=== PATIENT | female | born 1940 | race Caucasian/White ===

== ENCOUNTER → 2018-02-21 | Outpatient (REF) | payer MEDICARE, SELFPAY | LOC: LAB 17:51 | PROVIDERS: Family Provider Physician Assistant; PCP Physician Assistant; Visit Provider Physician Assistant | DX: C44.729 Squamous cell carcinoma of skin of left lower limb, including hip (principal) | CPT/HCPCS: 87070; 87075; 87205 ==

== ENCOUNTER 2020-05-05 13:34 | Inpatient (IN) | payer MEDICARE, SELFPAY ==
[2020-05-05] VITALS (26 sets, daily range): BP systolic 79–205; BP diastolic 51–97; PULSE 90–116; RESP 19–37; TEMP 37.1–37.2; O2SAT 90–98; BMI 21.2
--- NOTE | 2020-05-05 13:44 | DI.RAD.S_ITS ---
PROCEDURE: XR CHEST 1V INDICATIONS: SOB, fatigue TECHNIQUE: One view of the chest was acquired. COMPARISON: [facility], , CHEST 1 VIEW, 04/19/2016, 10:12. FINDINGS: Surgical changes and devices: None. Lungs and pleura: Interstitial prominence and Sveta B-lines noted compatible with CHF. Trace right pleural effusion. No pneumothorax. Mediastinum: Mediastinal contours appear normal. Heart is enlarged. Mitral annulus calcifications noted. Bones and chest wall: No suspicious bony lesions. Overlying soft tissues appear unremarkable. IMPRESSION: CHF. Dictated by: Namita Mcgraw MD, PhD on 05/05/2020 at 15:39 Approved by: Namita Mcgraw MD, PhD on 05/05/2020 at 15:42
[2020-05-05] MEDS: FUROSEMIDE 40 MG/4 ML VIAL IV (13:53)
--- NOTE | 2020-05-05 13:55 | PC.NURSE ---
informed due to airborne precautions we would not be able to allow visitors. If the patient's COVID is negative we can get him in then. If the patient is positive, visitors will be restricted.
[2020-05-05] MEDS: NITROGLYCERIN 50 MG/250 ML INFUS..BTL 30 MG IV (13:56)
[2020-05-05 14:20] LABS: Add Manual Diff / Slide Review NO; Basophils Absolute Auto 100 /uL (0-100); Basophils Percent Auto 0.8 % (0-2); Eosinophils Absolute Auto 100 /uL (0-450); Eosinophils Percent Auto 0.9 % (2-4); Hematocrit 43.1 % (36-46); Lymphocytes Absolute Auto 1700 /uL (1100-4500); Mean Corpuscular HGB Conc 32.5 % (30-36); Mean Corpuscular Hemoglobin 32.8 PG (26-34); Mean Corpuscular Volume 100.9 fL (80-100); Monocytes Absolute Auto 500 /uL (0-900); Monocytes Percent Auto 6.5 % (3-14); Neutrophils Absolute Auto 6000 /uL (1500-7000); Neutrophils Percent Auto 71.8 % (50-75); Platelet Count 214 X10^3/uL (150-400); Red Blood Cell Count 4.27 X10^6/uL (4.0-5.2); White Blood Cell Count 8.3 X10^3/uL (4.5-11.0)
[2020-05-05 14:28] LABS: HCO3 ABG 15 mmol/L (22-26); Oxygen Saturation ABG 94 % (95-100); PCO2 ABG 29.1 mmHg (35-45); PO2 ABG 75 mmHg (80-100); TCO2 ABG 16 mmol/L (21-31); pH ABG 7.33 (7.35-7.45)
[2020-05-05 14:29] LABS: PTT Partial Thromboplastin Tim 49 SECONDS (26.4-36.2)
--- NOTE | 2020-05-05 14:32 | RT ---
HFNC in ER started, Dr Winston stated he wants a trial of HFNC before trying Bipap (pt severely dyspnic) ABG obtained with some difficulty, but results sent to Dr Winston. No HFNC changes
[2020-05-05 14:33] LABS: Creatine Kinase 115 U/L (30-135); Magnesium 1.8 mg/dL (1.6-2.3)
[2020-05-05 14:35] LABS: Alanine Aminotransferase 25 IU/L (<35); Albumin 4.7 g/dL (3.5-5.0); Albumin Globulin Ratio 1.3 (1.0-2.8); Alkaline Phosphatase 103 U/L (38-126); Aspartate Aminotransferase 40 IU/L (14-36); BUN Creatinine Ratio 18.5 (6-22); Bilirubin Total 1.1 mg/dL (0.2-1.3); Blood Urea Nitrogen 20 mg/dL (7-17); Calcium 9.6 mg/dL (8.4-10.2); Carbon Dioxide 14 mmol/L (22-32); Chloride 105 mmol/L (98-107); Estimated Glomerular Filt Rate 48.9 mL/min (>60); Globulin 3.5 g/dL (1.7-4.1); Glucose 196 mg/dL (80-110); HEMOLYSIS < 15 (0-50); Potassium 4.4 mmol/L (3.4-5.1); Prothrombin Time 52.6 SECONDS (10.1-12.7); Sodium 136 mmol/L (137-145); Total Protein 8.2 g/dL (6.3-8.2)
[2020-05-05 14:36] LABS: INR 4.6 (0.9-1.3)
[2020-05-05 14:42] LABS: C-Reactive Protein Quant < 0.5 mg/dL (<1.0)
[2020-05-05 14:44] LABS: NT-proBNP (BNP-Adult 18+) 4610 pg/mL (<450); Troponin I 0.015 ng/mL (0.01-0.034)
--- NOTE | 2020-05-05 14:46 | PC.NURSE ---
ems reported pt HR irreg at 140bpm, provided 20mg cardizem iv.
[2020-05-05 14:53] LABS: CKMB % Relative Index 1.3 % (1.5-5.0); Creatine Kinase MB 1.44 ng/mL (<2.37)
[2020-05-05 14:58] LABS: Procalcitonin < 0.05 ng/mL (<0.5)
--- NOTE | 2020-05-05 15:05 | ED.SOB ---
HPI - SOB/Dyspnea General Chief Complaint: Shortness of Breath/Dyspnea Stated Complaint: Severe resp distress,AFIB Time Seen by Provider: 05/05/20 13:37 Source: patient and EMS Mode of arrival: EMS Limitations: no limitations History of Present Illness HPI Narrative: 80F former smoker with history of CHF and prior vascular occlusion presents by EMS for severe, rather sudden onset shortness of breath. She is a rather poor historian and is unclear if she has ever had AFib before but does state that she takes blood thinners. EMS found her and a rapid atrial fibrillation with significant respiratory distress, IV and oxygen or given and Cardizem 20 mg IV push was given. By her arrival her heart rate had improved tremendously, she was taken into a negative flow room and aggressive treatment provided. She denies any recent medication or dietary change. She denies any chest pain. She denies any weight gain. She denies missing any medications. She denies any fever or chills. She denies nausea, vomiting or diarrhea. Related Data Home Medications Medication Instructions Recorded Confirmed Alendronate Sodium (FOSAMAX) 10 mg PO 30 #0 01/05/12 Allergies Allergy/AdvReac Type Severity Reaction Status Date / Time No Known Drug Allergies Allergy Verified 05/05/20 14:50 Review of Systems Constitutional Constitutional: Denies chills, Denies fatigue, Denies fever(s), Denies frequent falls, Denies lethargy and Denies weakness Eyes Eyes: Denies change in vision, Denies eye discharge, Denies irritation and Denies loss of vision ENT Ears, Nose, Mouth, and Throat: Denies change in voice, Denies dizziness, Denies neck pain, Denies sore throat and Denies throat swelling Cardiovascular Cardiovascular: Denies chest pain, Denies irregular heart rhythm, Reports lightheadedness, Denies palpitations, Reports dyspnea, Reports dyspnea on exertion and Denies orthopnea Respiratory Respiratory: Denies cough, Reports dyspnea, Reports dyspnea on exertion and Denies wheezing Gastrointestinal Gastrointestinal: Denies abdominal pain, Denies change in bowel habits, Denies diarrhea, Denies nausea and Denies vomiting Musculoskeletal Musculoskeletal: Denies neck pain and Denies numbness Integumentary/Breasts Skin/Breast: Denies pruritus, Denies erythema, Denies rash and Denies wounds Neurologic Neurologic: Denies behavioral changes, Denies confusion, Denies dizziness, Denies frequent falls, Denies loss of vision, Denies numbness and Denies weakness Psychiatric Psychiatric: Denies anxiety, Denies behavioral changes, Denies confusion, Denies depression, Denies homicidal ideation and Denies suicidal ideation Endocrine Endocrine: Denies fatigue, Denies flushing and Denies palpitations Hematologic/Lymphatic Hematologic/Lymphatic: Denies easy bruising Allergic/Immunologic Allergic/Immunologic: Denies urticaria, Denies throat swelling and Denies wheezing Patient History Social History household members: spouse Smoking Status: Former smoker Smoking Status: Current every day smoker alcohol intake frequency: 0-2 drinks per day Substance Use Type: does not use Exam Narrative Exam Narrative: GENERAL: [80] year old patient appears stated age. Well-nourished, well-developed patient, in significant respiratory distress with tachypnea, 2-3 word sentences HEAD: Atraumatic. Normocephalic. EYES: Pupils equal round and reactive. Extraocular motions intact. No scleral icterus. No injection or drainage. ENT: Nose without bleeding, purulent drainage. Throat without erythema, tonsillar hypertrophy or exudate. Airway patent. NECK: Trachea midline. Non tender CARDIOVASCULAR: Tachycardic and irregular rhythm without murmurs, gallops, or rubs. RESPIRATORY: significant work of breathing, wet sounding in all islas GASTROINTESTINAL: Abdomen soft, non-tender, nondistended. EXTREMITIES: No edema or joint tenderness. BACK: Nontender without deformity or crepitance. No flank tenderness. NEURO: AOx3. SKIN: No rash or erythema of visible areas Initial Vital Signs Initial Vital Signs: Vital Signs Pulse Rate 100 H 05/05/20 13:30 Respiratory Rate 34 H 05/05/20 13:30 Blood Pressure 205/97 H 05/05/20 13:30 Pulse Oximetry 92 05/05/20 13:30 Course Course Course Narrative: patient taken to negative flow room and placed on hi flow nasal cannula, with nitro drip. She rapidly improves and when appropriate NG drip turned down and then off, transitioned to oral meds. Orders Ordered: ED Orders 05/05/20 13:44 XR chest 1V Stat 05/05/20 13:50 C-Reactive Protein Quant Stat Complete Blood Count AUTO DIFF Stat Comprehensive Metabolic Panel Stat Ferritin Stat Lactate (Lactic Acid) Stat Magnesium Stat NT-proBNP (BNP-Adult 18+) Stat Partial Thromboplastin Time Stat Procalcitonin Stat Prothrombin Time INR Stat Troponin & CK Cardiac Panel Stat 05/05/20 14:15 Arterial Blood Gas Stat 05/05/20 14:48 Blood Culture Stat Nitroglycerin (Nitroglycerin) 50 mg in 250 mls @ 30 mls/hr IV TITRATE SUE; Protocol Last Titration: 05/05/20 17:32 Dose: 0 mcg/min, 0 mls/hr Documented by: Titration: 05/05/20 16:39 Dose: 0 mcg/min, 0 mls/hr Documented by: Admin: 05/05/20 13:56 Dose: 100 mcg/min, 30 mls/hr Documented by: VILMA Discontinued Medications Carvedilol (Coreg) 12.5 mg PO NOW ONE Stop: 05/05/20 15:11 Last Admin: 05/05/20 15:36 Dose: 12.5 mg Documented by: VILMA Furosemide (Lasix) 40 mg IV NOW ONE Stop: 05/05/20 13:44 Last Admin: 05/05/20 13:53 Dose: 40 mg Documented by: VILMA Ceftriaxone Sodium/Dextrose (Rocephin) 1 gm in 50 mls @ 100 mls/hr IV NOW ONE Stop: 05/05/20 15:21 Last Infusion: 05/05/20 15:38 Dose: 50 mls/hr Documented by: Admin: 05/05/20 15:07 Dose: 100 mls/hr Documented by: VILMA Azithromycin 500 mg/ Dextrose 250 mls @ 250 mls/hr IV NOW ONE Stop: 05/05/20 14:53 Last Infusion: 05/05/20 17:52 Dose: 0 mls/hr Documented by: Admin: 05/05/20 15:36 Dose: 250 mls/hr Documented by: VILMA Vital Signs Vital signs: Vital Signs - 8 hr 05/05/20 13:30 05/05/20 13:56 05/05/20 14:10 Pulse Rate 100 H 103 H Respiratory Rate 34 H Blood Pressure 205/97 H 205/97 H Pulse Oximetry 92 92 05/05/20 14:14 05/05/20 14:20 05/05/20 14:26 Pulse Rate 102 H 100 H 104 H Respiratory Rate 37 H 32 H 32 H Blood Pressure 138/90 Pulse Oximetry 90 L 91 92 05/05/20 14:30 05/05/20 14:40 05/05/20 14:50 Pulse Rate 99 H 94 H 108 H Respiratory Rate 27 H 24 28 H Blood Pressure 146/71 H 144/58 H 135/60 Pulse Oximetry 92 93 94 05/05/20 15:00 05/05/20 15:10 05/05/20 15:20 Pulse Rate 106 H 111 H 98 H Respiratory Rate 25 H 27 H 19 Blood Pressure 121/51 L 108/63 107/72 Pulse Oximetry 94 96 97 05/05/20 15:30 05/05/20 15:36 05/05/20 15:40 Pulse Rate 106 H 98 H 104 H Respiratory Rate 21 26 H Blood Pressure 118/86 118/86 130/78 Pulse Oximetry 97 97 05/05/20 15:50 05/05/20 16:00 05/05/20 16:10 Pulse Rate 116 H 104 H 90 Respiratory Rate 25 H 25 H 21 Blood Pressure 132/59 L 105/55 L 96/51 L Pulse Oximetry 97 96 97 05/05/20 16:20 05/05/20 16:30 Pulse Rate 103 H 104 H Respiratory Rate 21 20 Blood Pressure 96/51 L 85/51 L Pulse Oximetry 95 97 MDM - SOB/Dyspnea Lab Data Result diagrams: 05/05/20 13:50 05/05/20 13:50 Labs: Lab Results 05/05/20 05/05/20 05/05/20 Range/Units 13:50 13:50 13:50 WBC 8.3 (4.5-11.0) X10^3/uL RBC 4.27 (4.0-5.2) X10^6/uL Hgb 14.0 (12.0-16.0) g/dL Hct 43.1 (36-46) % MCV 100.9 H (80-100) fL MCH 32.8 (26-34) PG MCHC 32.5 (30-36) % RDW 16.0 H (11.6-14.8) % Plt Count 214 (150-400) X10^3/uL Neut % (Auto) 71.8 (50-75) % Lymph % (Auto) 20.0 L (25-40) % [place] % (Auto) 6.5 (3-14) % Eos % (Auto) 0.9 L (2-4) % Baso % (Auto) 0.8 (0-2) % Neut # (Auto) 6000 (2487-1704) /uL Lymph # (Auto) 1700 (3596-5012) /uL [place] # (Auto) 500 (0-900) /uL Eos # (Auto) 100 (0-450) /uL Baso # (Auto) 100 (0-100) /uL PT (10.1-12.7) SECONDS INR (0.9-1.3) APTT (26.4-36.2) SECONDS ABG pH (7.35-7.45) ABG pCO2 (35-45) mmHg ABG pO2 (80-100) mmHg ABG HCO3 (22-26) mmol/L ABG Total CO2 (21-31) mmol/L ABG O2 Saturation (95-100) % ABG Base Excess (-2-2) mmol/L FiO2 Sodium 136 L (137-145) mmol/L Potassium 4.4 (3.4-5.1) mmol/L Chloride 105 (98-107) mmol/L Carbon Dioxide 14 L (22-32) mmol/L BUN 20 H (7-17) mg/dL Creatinine 1.08 H (0.52-1.04) mg/dL Estimated GFR 48.9 L (>60) mL/min BUN/Creatinine Ratio 18.5 (6-22) Glucose 196 H (80-110) mg/dL Lactate 6.0 H* (0.7-2.1) mmol/L Calcium 9.6 (8.4-10.2) mg/dL Magnesium (1.6-2.3) mg/dL Ferritin 108 (11-264) ng/mL Total Bilirubin 1.1 (0.2-1.3) mg/dL AST 40 H (14-36) IU/L ALT 25 (<35) IU/L Alkaline Phosphatase 103 (38-126) U/L Total Creatine Kinase (30-135) U/L CK-MB (CK-2) (<2.37) ng/mL CK-MB (CK-2) Rel Index (1.5-5.0) % Troponin I (0.01-0.034) ng/mL C-Reactive Protein < 0.5 (<1.0) mg/dL NT-Pro-B Natriuret Pep (<450) pg/mL Total Protein 8.2 (6.3-8.2) g/dL Albumin 4.7 (3.5-5.0) g/dL Globulin 3.5 (1.7-4.1) g/dL Albumin/Globulin Ratio 1.3 (1.0-2.8) Procalcitonin (<0.5) ng/mL COVID-19 PCR (Negative) 05/05/20 05/05/20 05/05/20 Range/Units 13:50 13:50 13:50 WBC (4.5-11.0) X10^3/uL RBC (4.0-5.2) X10^6/uL Hgb (12.0-16.0) g/dL Hct (36-46) % MCV (80-100) fL MCH (26-34) PG MCHC (30-36) % RDW (11.6-14.8) % Plt Count (150-400) X10^3/uL Neut % (Auto) (50-75) % Lymph % (Auto) (25-40) % [place] % (Auto) (3-14) % Eos % (Auto) (2-4) % Baso % (Auto) (0-2) % Neut # (Auto) (4935-7769) /uL Lymph # (Auto) (7965-8985) /uL [place] # (Auto) (0-900) /uL Eos # (Auto) (0-450) /uL Baso # (Auto) (0-100) /uL PT 52.6 H (10.1-12.7) SECONDS INR 4.6 H* (0.9-1.3) APTT 49 H (26.4-36.2) SECONDS ABG pH (7.35-7.45) ABG pCO2 (35-45) mmHg ABG pO2 (80-100) mmHg ABG HCO3 (22-26) mmol/L ABG Total CO2 (21-31) mmol/L ABG O2 Saturation (95-100) % ABG Base Excess (-2-2) mmol/L FiO2 Sodium (137-145) mmol/L Potassium (3.4-5.1) mmol/L Chloride (98-107) mmol/L Carbon Dioxide (22-32) mmol/L BUN (7-17) mg/dL Creatinine (0.52-1.04) mg/dL Estimated GFR (>60) mL/min BUN/Creatinine Ratio (6-22) Glucose (80-110) mg/dL Lactate (0.7-2.1) mmol/L Calcium (8.4-10.2) mg/dL Magnesium 1.8 (1.6-2.3) mg/dL Ferritin (11-264) ng/mL Total Bilirubin (0.2-1.3) mg/dL AST (14-36) IU/L ALT (<35) IU/L Alkaline Phosphatase (38-126) U/L Total Creatine Kinase 115 (30-135) U/L CK-MB (CK-2) 1.44 (<2.37) ng/mL CK-MB (CK-2) Rel Index 1.3 L (1.5-5.0) % Troponin I 0.015 (0.01-0.034) ng/mL C-Reactive Protein (<1.0) mg/dL NT-Pro-B Natriuret Pep 4610 H (<450) pg/mL Total Protein (6.3-8.2) g/dL Albumin (3.5-5.0) g/dL Globulin (1.7-4.1) g/dL Albumin/Globulin Ratio (1.0-2.8) Procalcitonin < 0.05 (<0.5) ng/mL COVID-19 PCR (Negative) 05/05/20 05/05/20 05/05/20 Range/Units 14:10 14:15 16:20 WBC (4.5-11.0) X10^3/uL RBC (4.0-5.2) X10^6/uL Hgb (12.0-16.0) g/dL Hct (36-46) % MCV (80-100) fL MCH (26-34) PG MCHC (30-36) % RDW (11.6-14.8) % Plt Count (150-400) X10^3/uL Neut % (Auto) (50-75) % Lymph % (Auto) (25-40) % [place] % (Auto) (3-14) % Eos % (Auto) (2-4) % Baso % (Auto) (0-2) % Neut # (Auto) (2962-2353) /uL Lymph # (Auto) (4352-3038) /uL [place] # (Auto) (0-900) /uL Eos # (Auto) (0-450) /uL Baso # (Auto) (0-100) /uL PT (10.1-12.7) SECONDS INR (0.9-1.3) APTT (26.4-36.2) SECONDS ABG pH 7.33 L (7.35-7.45) ABG pCO2 29.1 L (35-45) mmHg ABG pO2 75 L (80-100) mmHg ABG HCO3 15 L (22-26) mmol/L ABG Total CO2 16 L (21-31) mmol/L ABG O2 Saturation 94 L (95-100) % ABG Base Excess -11.0 L (-2-2) mmol/L FiO2 0.50 Sodium (137-145) mmol/L Potassium (3.4-5.1) mmol/L Chloride (98-107) mmol/L Carbon Dioxide (22-32) mmol/L BUN (7-17) mg/dL Creatinine (0.52-1.04) mg/dL Estimated GFR (>60) mL/min BUN/Creatinine Ratio (6-22) Glucose (80-110) mg/dL Lactate 2.1 (0.7-2.1) mmol/L Calcium (8.4-10.2) mg/dL Magnesium (1.6-2.3) mg/dL Ferritin (11-264) ng/mL Total Bilirubin (0.2-1.3) mg/dL AST (14-36) IU/L ALT (<35) IU/L Alkaline Phosphatase (38-126) U/L Total Creatine Kinase (30-135) U/L CK-MB (CK-2) (<2.37) ng/mL CK-MB (CK-2) Rel Index (1.5-5.0) % Troponin I (0.01-0.034) ng/mL C-Reactive Protein (<1.0) mg/dL NT-Pro-B Natriuret Pep (<450) pg/mL Total Protein (6.3-8.2) g/dL Albumin (3.5-5.0) g/dL Globulin (1.7-4.1) g/dL Albumin/Globulin Ratio (1.0-2.8) Procalcitonin (<0.5) ng/mL COVID-19 PCR Negative (Negative) Imaging Data Chest x-ray: Radiologist's Impression: Mariela North 80 F [address] [address] XRay Report Signed Patient: Mariela North EMR#: [id number] : [id number]:[id number] Age/Sex: 80 / FDate of Service: 05/05/20 Loc: ED Accession Number: [id number] Procedure: XR chest 1V Ordering Provider: Cruz Winston D.O. PROCEDURE: XR CHEST 1V INDICATIONS: SOB, fatigue TECHNIQUE: One view of the chest was acquired. COMPARISON: [facility], CHEST 1 VIEW, 04/19/2016, 10:12. FINDINGS: Surgical changes and devices: None. Lungs and pleura: Interstitial prominence and Sveta B-lines noted compatible with CHF. Trace right pleural effusion. No pneumothorax. Mediastinum: Mediastinal contours appear normal. Heart is enlarged. Mitral annulus calcifications noted. Bones and chest wall: No suspicious bony lesions. Overlying soft tissues appear unremarkable. IMPRESSION: CHF. Dictated by: Namita Mcgraw MD, PhD on 05/05/2020 at 15:39 Approved by: Namita Mcgraw MD, PhD on 05/05/2020 at 15:42 Discharge Plan Departure Patient Disposition: Admitted As Inpatient Clinical Impression: Atrial fibrillation with RVR, Hypoxia Acute CHF Qualifiers: Heart failure type: unspecified Qualified Code(s): I50.9 - Heart failure, unspecified Discharge Date/Time: 05/05/20 17:30 Referrals: Diana Pinzon PA-C [Primary Care Provider] - Admit Date/Time: 05/05/20 16:33 Admit Provider: Bisi Morrison
[2020-05-05 15:07] LABS: Ferritin 108 ng/mL (11-264)
[2020-05-05] MEDS: CEFTRIAXONE 1 GM/50 ML FROZ.PIGGY IV (15:07)
[2020-05-05 15:15] LABS: COVID19 -Nasal RAPID Negative (Negative)
[2020-05-05] MEDS: carvediloL 12.5 MG TABLET PO (15:36)
[2020-05-05] MEDS: AZITHROMYCIN 500 MG in DEXTROSE 5% IN WATER 250 ML IV (15:36)
[2020-05-05 16:12] LABS: Reflexed Lactate in 2 Hours Y
--- NOTE | 2020-05-05 16:40 | PC.NURSE ---
the first dose of azithromycin was started but ended up spilling into the floor. 2nd dose ordered from pharmacy and started at 1650. provider and charge aware and no new orders at this time,.
[2020-05-05 16:43] LABS: Lactate 2HR (Lactic Acid Rflx) 2.1 mmol/L (0.7-2.1)
--- NOTE | 2020-05-05 18:22 | PC.NURSE ---
1725 pt arrived via gurney from ED, A/Ox3, RT at bedside. Pt currently on a non-breather mask and will be transitioned to [place]. Slide board used to place pt on bed, pt immediately place on bed rodriguez, was given 40mg Lasix in ED. Connected pt to monitor and telemetry pt currently in AFib RVR rate in the 140's. ED placed pt on a nitro gtt which has now been discontinued. Pt oriented to room and call light system, able to make needs known, Admission completed, no further needs at this time, will continue to monitor.
[2020-05-05 22:35] LABS: Troponin I 0.085 ng/mL (0.01-0.034)
[2020-05-06] VITALS (11 sets, daily range): BP systolic 106–191; BP diastolic 58–109; PULSE 78–100; RESP 15–22; TEMP 35.9–37.1; O2SAT 96–97
--- NOTE | 2020-05-06 01:54 | P.HP_ITS ---
History of Present Illness History of Present Illness Date Patient Seen: 05/05/20 Time Patient Seen: 21:15 Chief complaint: Severe resp distress,AFIB Narrative: Mariela North is a 80-year-old female with a history of atrial fibrillation, current light tobacco use, peripheral arterial disease, hypertension, hyperlipidemia presented with shortness of breath and shakiness. She states that happened around noon and she was not doing anything at that time. She den ied fever or chills, chest pain, nausea vomiting, abdominal pain, dysuria, has occasional loose stools, and incontinence. 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 She is currently taking warfarin for this and takes the equivalent of 2.5 mg 6 days a week except . In the emergency department they did start with a administration of IV diltiazem 20 mg and then put her on a nitro drip for about 3 hours. Chest x-ray indicated CHF with Sveta B lines. She was initiated on heated high-flow humidified oxygen but by the time she reached the floor she was only on room air. Her temp 96.7?, blood pressure 154/67, heart rate 85, respiratory rate 15 oxygen saturation 97% on room air. WBC 8.3, RBC 4.27, hemoglobin 14 hematocrit 43.1 platelet count 214, INR was 4.6 which is supratherapeutic, sodium 136, potassium 4.4, bicarb 105, CO2 14, BUN 20, creatinine 1.08, estimated GFR 48.9, glucose 196, lactate normal at 2.1, magnesium normal at 1.8, total bili normal at 1.1, AST 40, ALT 25, alk-phos, initial troponin was 0.015 and her 2nd troponin was 0.085, proBNP was 46 10, procalcitonin was normal at 0. 05 and COVID-19 was negative. Patient History Medical History Atrial fibrillation with RVR (Acute) Surgical History Back pain with history of spinal surgery (Acute) Femoral-popliteal bypass graft occlusion (Acute) Family & Social History Family History (Updated 07/10/20 @ 02:07 by JAQUAN Doe) Mother Old age Family history unavailable: Yes (Unknown health problems of the father per patient) Social History: household members spouse Prior Living Arrangements House Safety & Behavioral: Feels Safe in Current Yes Environment Been Physically Hurt or No Threatened By a Person Suicidal Ideation Description None Suicide Plan Description No Plan Tobacco & Substance use: Tobacco type cigarettes Smoking Status Former smoker alcohol intake frequency 0-2 drinks per day Substance Use Type does not use Meds Home Medications and Allergies Home Medications Medication Instructions Recorded Confirmed Type carvedilol 05/05/20 History Allergies Allergy/AdvReac Type Severity Reaction Status Date / Time No Known Drug Allergies Allergy Verified 05/05/20 14:50 Review of Systems Review of Systems ROS: Yes All systems reviewed with the patient and are negative except as otherwise documented Exam Vital Signs (past 8 hours): - 05/05/20 21:50 05/06/20 00:25 Temperature 98.9 F 96.7 F L Pulse Rate 105 H 85 Respiratory Rate 32 H 15 Blood Pressure 159/79 H 154/67 H Pulse Oximetry 97 97 Fraction of Inspired Oxygen 30 Oxygen Delivery Method Room Air Oxygen Flow Rate 0 Narrative Exam Narrative: Gen: Alert, oriented, well-developed 80 y.o. female, slightly confused HEENT: normocephalic, atraumatic, conjunctiva clear, sclera non-icteric, oral mucosa pink and moist Neck: supple, full ROM, no JVD, trachea is midline Resp: Lungs CTA, non-labored breathing CV: RRR, no murmur or rubs Abd: soft, non-tender, normoactive BTs Skin: no lesions or rashes, dry and intact Neuro: Alert and oriented X 4 w/no focal deficits. Speech clear and coherent. Extremities: Has what appears to be a surgical scar on her instep of her right foot. Is ambulatory with a walker, negative Nacho?s sign Psyche: normal mood and affect. Objective Labs Result Diagrams: 05/05/20 13:50 05/05/20 13:50 Labs: Laboratory Results - last 24 hr 05/05/20 05/05/20 05/05/20 13:50 13:50 13:50 WBC 8.3 RBC 4.27 Hgb 14.0 Hct 43.1 MCV 100.9 H MCH 32.8 MCHC 32.5 RDW 16.0 H Plt Count 214 Neut % (Auto) 71.8 Lymph % (Auto) 20.0 L [place] % (Auto) 6.5 Eos % (Auto) 0.9 L Baso % (Auto) 0.8 Neut # (Auto) 6000 Lymph # (Auto) 1700 [place] # (Auto) 500 Eos # (Auto) 100 Baso # (Auto) 100 PT INR APTT ABG pH ABG pCO2 ABG pO2 ABG HCO3 ABG Total CO2 ABG O2 Saturation ABG Base Excess FiO2 Sodium 136 L Potassium 4.4 Chloride 105 Carbon Dioxide 14 L BUN 20 H Creatinine 1.08 H Estimated GFR 48.9 L BUN/Creatinine Ratio 18.5 Glucose 196 H Lactate 6.0 H* Calcium 9.6 Magnesium Ferritin 108 Total Bilirubin 1.1 AST 40 H ALT 25 Alkaline Phosphatase 103 Total Creatine Kinase CK-MB (CK-2) CK-MB (CK-2) Rel Index Troponin I C-Reactive Protein < 0.5 NT-Pro-B Natriuret Pep Total Protein 8.2 Albumin 4.7 Globulin 3.5 Albumin/Globulin Ratio 1.3 Procalcitonin COVID-19 PCR 05/05/20 05/05/20 05/05/20 13:50 13:50 13:50 WBC RBC Hgb Hct MCV MCH MCHC RDW Plt Count Neut % (Auto) Lymph % (Auto) [place] % (Auto) Eos % (Auto) Baso % (Auto) Neut # (Auto) Lymph # (Auto) [place] # (Auto) Eos # (Auto) Baso # (Auto) PT 52.6 H INR 4.6 H* APTT 49 H ABG pH ABG pCO2 ABG pO2 ABG HCO3 ABG Total CO2 ABG O2 Saturation ABG Base Excess FiO2 Sodium Potassium Chloride Carbon Dioxide BUN Creatinine Estimated GFR BUN/Creatinine Ratio Glucose Lactate Calcium Magnesium 1.8 Ferritin Total Bilirubin AST ALT Alkaline Phosphatase Total Creatine Kinase 115 CK-MB (CK-2) 1.44 CK-MB (CK-2) Rel Index 1.3 L Troponin I 0.015 C-Reactive Protein NT-Pro-B Natriuret Pep 4610 H Total Protein Albumin Globulin Albumin/Globulin Ratio Procalcitonin < 0.05 COVID-19 PCR 05/05/20 05/05/20 05/05/20 14:10 14:15 16:20 WBC RBC Hgb Hct MCV MCH MCHC RDW Plt Count Neut % (Auto) Lymph % (Auto) [place] % (Auto) Eos % (Auto) Baso % (Auto) Neut # (Auto) Lymph # (Auto) [place] # (Auto) Eos # (Auto) Baso # (Auto) PT INR APTT ABG pH 7.33 L ABG pCO2 29.1 L ABG pO2 75 L ABG HCO3 15 L ABG Total CO2 16 L ABG O2 Saturation 94 L ABG Base Excess -11.0 L FiO2 0.50 Sodium Potassium Chloride Carbon Dioxide BUN Creatinine Estimated GFR BUN/Creatinine Ratio Glucose Lactate 2.1 Calcium Magnesium Ferritin Total Bilirubin AST ALT Alkaline Phosphatase Total Creatine Kinase CK-MB (CK-2) CK-MB (CK-2) Rel Index Troponin I C-Reactive Protein NT-Pro-B Natriuret Pep Total Protein Albumin Globulin Albumin/Globulin Ratio Procalcitonin COVID-19 PCR Negative 05/05/20 22:05 WBC RBC Hgb Hct MCV MCH MCHC RDW Plt Count Neut % (Auto) Lymph % (Auto) [place] % (Auto) Eos % (Auto) Baso % (Auto) Neut # (Auto) Lymph # (Auto) [place] # (Auto) Eos # (Auto) Baso # (Auto) PT INR APTT ABG pH ABG pCO2 ABG pO2 ABG HCO3 ABG Total CO2 ABG O2 Saturation ABG Base Excess FiO2 Sodium Potassium Chloride Carbon Dioxide BUN Creatinine Estimated GFR BUN/Creatinine Ratio Glucose Lactate Calcium Magnesium Ferritin Total Bilirubin AST ALT Alkaline Phosphatase Total Creatine Kinase CK-MB (CK-2) CK-MB (CK-2) Rel Index Troponin I 0.085 H C-Reactive Protein NT-Pro-B Natriuret Pep Total Protein Albumin Globulin Albumin/Globulin Ratio Procalcitonin COVID-19 PCR Assessment & Plan Assessment & Plan narrative: Mariela North is a 80-year-old female with new onset CHF exacerbation. She will be admitted to the ICU for further management and treatment. New onset CHF, acute, present on admission with a proBNP of 4610 -she received Lasix 40 mg x 1 in the ED -she was initiated on a nitro drip in the ED but was discontinued prior to coming to the floor. -I have ordered an echocardiogram for the morning -tropes are being trended and the 2nd troponin is mildly elevated concerning for demand ischemia -1500 cc fluid restriction and a low-sodium diet -daily weights and strict I&Os BRIAN with a creatinine of 1.08, acute, present on admission -her baseline creatinine has been in the normal range until today. -recheck in the morning Atrial fibrillation anticoagulated on warfarin, supratherapeutic, present on admission -Cardiac telemetry w/continous oxygen saturation monitoring -her warfarin will be held tonight. Her normal dose is 2.5 mg daily with the exception of . -the patient received carvedilol 12.5 mg in the ED and her home dose of 12.5 mg p.o. b.i.d. will be continued -she also takes diltiazem 120 mg extended release p.o. daily and this will be continued tomorrow Consults: none, however, she will need to be referred to a water resources project manager for further followup Patient is inpatient status as her stay is likely to exceed 2 midnights. FEN: Saline lock, Low sodium diet with 1500 cc fluid restriction, BMP in the am. VTE prophylaxis: Bilateral SCDs Dispo: Unknown at this time Code Status: Full Code as discussed with patient COVID-19 COVID-19 status: Negative Result date/Date tested (Pos, Neg/Pending): 05/05/20
[2020-05-06 05:08] LABS: Add Manual Diff / Slide Review NO; Basophils Absolute Auto 100 /uL (0-100); Basophils Percent Auto 1.1 % (0-2); Eosinophils Absolute Auto 0 /uL (0-450); Eosinophils Percent Auto 0.8 % (2-4); Hematocrit 34.2 % (36-46); Hemoglobin 11.4 g/dL (12.0-16.0); Lymphocytes Absolute Auto 1000 /uL (1100-4500); Lymphocytes Percent Auto 16.6 % (25-40); Mean Corpuscular HGB Conc 33.3 % (30-36); Mean Corpuscular Hemoglobin 32.9 PG (26-34); Mean Corpuscular Volume 98.6 fL (80-100); Monocytes Absolute Auto 600 /uL (0-900); Monocytes Percent Auto 9.8 % (3-14); Neutrophils Absolute Auto 4300 /uL (1500-7000); Neutrophils Percent Auto 71.7 % (50-75); Platelet Count 170 X10^3/uL (150-400); Red Blood Cell Count 3.47 X10^6/uL (4.0-5.2); Red Cell Distribution Width 15.9 % (11.6-14.8)
[2020-05-06 05:16] LABS: BUN Creatinine Ratio 23.2 (6-22); Blood Urea Nitrogen 22 mg/dL (7-17); Calcium 8.7 mg/dL (8.4-10.2); Carbon Dioxide 22 mmol/L (22-32); Chloride 106 mmol/L (98-107); Estimated Glomerular Filt Rate 56.7 mL/min (>60); Glucose 99 mg/dL (80-110); HEMOLYSIS 26 (0-50); Magnesium 1.7 mg/dL (1.6-2.3); Potassium 3.8 mmol/L (3.4-5.1); Sodium 135 mmol/L (137-145)
[2020-05-06] MEDS: carvediloL 12.5 MG TABLET PO ×2 (05:52→18:53)
[2020-05-06] MEDS: dilTIAZem CD 120 MG CAP PO (05:52)
--- NOTE | 2020-05-06 06:25 | PC.NURSE ---
PT alert and oriented. This AM at 0500 pt reports I feel so anxious and I feel like I have palpitations in my heart. HR in the 120s and BP at 191/92. Notified Neal PARTIDA of VS and pt symptoms. Morning meds ordered to give now. Meds given. Talked with patient of plan for today. Pt now resting in bed with HR 92. WCTM
--- NOTE | 2020-05-06 08:48 | DI.ECHO.S_ITS ---
Echocardiogram Report + + :Name: JASMYN ROSSI Study Date: 05/06/2020 Height: 63 in : :[facility] Weight: 120 lb : : Gender: Female BSA: 1.6 m2 : :: 1940 Age: 80 yrs BP: 106/67 mmHg: :Reason For Study: CHF, : : Performed By: Donta Stone : :Referring: HIRAL MESA : + + Interpretation Summary The left ventricle is normal in size. Left ventricular systolic function is mild to moderately reduced. The ejection fraction is estimated to be 40-45%. Left ventricular function has moderately worsened compared to the previous exam. There is a significant dyssynchronous contraction pattern, consistent with a conduction abnormality. There is mild to moderate global hypokinesis of the left ventricle. Diastolic function could not be accurately assessed due to atrial fibrillation. The right ventricle is normal in size and function. The right ventricular systolic pressure is estimated to be at least 48 mmHg based on an estimated right atrial pressure of 15 mm Hg. Compared to the prior echo exam, there has been a decrease in the severity of pulmonary hypertension. Both atria are severely dilated. There is moderate to severe mitral regurgitation. Compared to the prior echo study, there has been an increase in the severity of mitral regurgitation. There is mild to moderate aortic stenosis. The peak aortic velocity is 1.79 m/sec. The calculated aortic valve area is 1.4 cm2. There is severe tricuspid regurgitation. The ascending aorta is at the upper limits of normal in size. Procedure: A two-dimensional transthoracic echocardiogram with color flow and Doppler was performed. The study quality was technically adequate. Comparison is made with the echocardiogram of 04/19/16. The suprasternal notch views were difficult to obtain and are suboptimal in quality. The patient was in atrial fibrillation with controlled ventricular rate during the exam. The patient had a heart rate of 66-95 beats per minute. Left Ventricle: The left ventricle is normal in size. There is normal left ventricular wall thickness. Left ventricular systolic function is mild to moderately reduced. The ejection fraction is estimated to be 40-45%. Left ventricular function has moderately worsened compared to the previous exam. There is a significant dyssynchronous contraction pattern, consistent with a conduction abnormality. There is mild to moderate global hypokinesis of the left ventricle. Diastolic function could not be accurately assessed due to atrial fibrillation. Right Ventricle: The right ventricle is normal in size and function. Atria: Both atria are severely dilated. The interatrial septum is intact with no evidence for an atrial septal defect. Mitral Valve: There is moderate to severe mitral annular calcification. The mitral valve leaflets are mildly calcified. There is moderate to severe mitral regurgitation. Compared to the prior echo study, there has been an increase in the severity of mitral regurgitation. Aortic Valve: The aortic valve is trileaflet. The aortic valve is moderately calcified. There is moderate to severely reduced leaflet mobility. There is mild to moderate aortic stenosis. The peak aortic velocity is 1.79 m/sec. The calculated aortic valve area is 1.4 cm2. There is no aortic regurgitation. Tricuspid Valve: The tricuspid valve leaflets are thin and pliable. There is severe tricuspid regurgitation. The right ventricular systolic pressure is estimated to be at least 48 mmHg based on an estimated right atrial pressure of 15 mm Hg. Compared to the prior echo exam, there has been a decrease in the severity of pulmonary hypertension. Pulmonic Valve: The pulmonic valve is normal in structure and function. There is trace pulmonic regurgitation. Great Vessels: The aortic root is normal size. The ascending aorta is at the upper limits of normal in size. Mild atherosclerotic plaque(s) in the ascending aorta. The pulmonary artery is normal size. The IVC is dilated (diameter is greater than 2.1 cm) and it collapses less than 50% with a sniff. This suggests a high right atrial pressure of 15 mm Hg. Pericardium/ Pleura There is no pericardial effusion. There is no pleural effusion. MMode/2D Measurements & Calculations LVIDd: 5.2 cm LVOT diam: 2.0 cm LVIDs: 4.0 cm Ao root diam: 2.9 cm FS: 22.1 % asc Aorta Diam: 3.5 cm EPSS: 1.6 cm IVSd: 1.0 cm LVPWd: 0.80 cm LV sanches. diameter/BSA (cm/m^2): 3.3 LV sys. diameter/BSA (cm/m^2): 2.6 LA dimension: 4.9 cm RA long axis: 5.7 cm LA A2 area: 30.9 cm2 RA area: 24.9 cm2 LA A4 area: 32.4 cm2 RA vol: 92.4 ml LA length (vol): 7.0 cm RA : 59.4 ml/m2 LA vol: 120.6 ml IVC diam: 2.3 cm LA vol index: 77.5 ml/m2 RVD1 (basal): 3.8 cm RVD2 (mid): 3.4 cm ROBIN (plan): 0.99 cm2 Doppler Measurements & Calculations Ao V2 max: 179.9 cm/sec LVOT Max Isael: 81.0 cm/sec Ao V2 mean: 141.8 cm/sec LV V1 max P.6 mmHg Ao max P.0 mmHg LV V1 VTI: 16.1 cm Ao mean P.5 mmHg ROBIN(I,D): 1.5 cm2 Ao V2 VTI: 33.2 cm ROBIN(V,D): 1.4 cm2 sev ratio: 0.49 ROBIN indexed to BSA (cm^2/m^2): 0.95 MV E max isael: 126.0 cm/sec TR max isael: 288.4 cm/sec MV A max isael: 1.9 cm/sec TR max P.3 mmHg MV E/A: 65.0 PA V2 max: 58.2 cm/sec Med Peak E' Isael: 3.4 cm/sec PA V2 mean: 42.0 cm/sec E/E' med: 36.6 PA mean P.79 mmHg Lat Peak E' Isael: 6.7 cm/sec PA pr(Accel): 56.7 mmHg E/E' lat: 18.7 E/e' average: 27.7 MV dec time: 0.21 sec MR PISA: 2.7 cm2 SV(LVOT): 48.9 ml MR flow rate: 100.2 cm3/sec MR PISA radius: 0.66 cm Reading Physician:05:49 PM
[2020-05-06] MEDS: LOPERAMIDE 2 MG CAPSULE PO (09:29)
--- NOTE | 2020-05-06 12:05 | PC.NURSE ---
Am shift Pt is A/o x4, denies chest pain or pressure. VSS stable since receiving AM meds early. Pt does appear to have some anxiety r/t pending testing and this does correlate with her increase in HR BP. Will notify Dr Putnam of findings. Echo completed. Results pending. Pt has chronic foot drop to RLE. AFO brace is at home, limiting mobility in room. will provide brace.
[2020-05-06 12:09] LABS: Troponin I 0.059 ng/mL (0.01-0.034)
[2020-05-06] MEDS: FUROSEMIDE 40 MG/4 ML VIAL IV ×2 (15:55→23:31)
--- NOTE | 2020-05-06 15:59 | CM.DANOTE ---
Discharge Planning/Care Management DCP: assessment: case received, EMR reviewed and met with pt during Team Bedside Rounds. Introduced self and role. Pt is a 80 year old female who admitted yesterday late afternoon to care of hospitalist team. COVID-19 test: negative. Payer: Medicare and [employer]. Admission status: INPT: confirmed by UR BETSY Mitchell. Pt admitted with symptoms of severe respiratory distress and AFIB. Full dx and treatment plan are in process. Dr. Putnam has ordered PT this afternoon. Pt identifies her plan at d/c as HOME!. She is hopeful that this will be soon she says. She had a brief snf stay a few years ago and says she wants it clear that she will not consider this options ever again. P:Agreed to see her again tomorrow as more is know. Anticipate d/c to home setting. Maybe HH? CM Discharge Assessment Start: 05/06/20 15:56 Freq: Status: Active Protocol: Document 05/06/20 15:57 ITV (Rec: 05/06/20 15:59 ITV [id number]) Discharge Planning Assessment Advance Directives? Yes History Provided By Patient,Medical Record Prior Living Arrangements House Household Members spouse Comment Charbel [place] [place] [employer] Already Rented / Owned FWW / Walker,Cane,Other Comment leg brace on R leg: has used for a long time. will bring this in for pt to use in hosptial. Review Status In Process
--- NOTE | 2020-05-06 16:45 | PC.NURSE ---
Report received from offgoing RN, bedside safety check completed. Pt awake and orientedx4, conversant and agreeable to plan to care regarding fluid intake limited to 1500ml per day. PIV x 2 noted in pt left arm. One noted to have been started in ED other one not documented as to time or place. Added to IV site check list. 16fr Abdi cath inserted as ordered, draining clear yellow urine.
--- NOTE | 2020-05-06 16:56 | P.PN_ITS ---
Subjective Subjective Date Patient Seen: 05/06/20 Interval history: Patient is a 80-year-old female admitted to the hospital for acute onset congestive heart failure, paroxysmal atrial fibrillation, and acute kidney failure. The patient received 2 doses of Lasix last evening. She reports increasing shortness of breath today. She has no chest pain. No nausea vomiting. The patient has no other complaints Exam Vital Signs (past 8 hours): - 05/06/20 11:47 05/06/20 11:52 05/06/20 15:30 Temperature 98.1 F 98.7 F Pulse Rate 83 78 97 H Respiratory Rate 22 17 22 Blood Pressure 160/90 H 140/80 Pulse Oximetry 97 96 97 Fraction of Inspired Oxygen 30 Oxygen Delivery Method Room Air Oxygen Flow Rate 0 Narrative Exam Narrative: Pleasant elderly female HEENT: Normocephalic atraumatic, sclerae with mild icterus, oropharynx is clear, neck reveals JVD to the angle of the jaw Lungs: Decreased breath sounds with scattered crackles at the bases bilaterally Cardiac exam irregularly irregular normal S1-S2 Abdomen soft nontender nondistended Extremities: 1+ edema bilateral Objective Labs Result Diagrams: 05/06/20 04:35 05/06/20 04:35 Labs: Laboratory Results - last 24 hr 05/05/20 05/06/20 05/06/20 22:05 02:00 04:35 WBC 6.0 RBC 3.47 L Hgb 11.4 L Hct 34.2 L MCV 98.6 MCH 32.9 MCHC 33.3 RDW 15.9 H Plt Count 170 Neut % (Auto) 71.7 Lymph % (Auto) 16.6 L [place] % (Auto) 9.8 Eos % (Auto) 0.8 L Baso % (Auto) 1.1 Neut # (Auto) 4300 Lymph # (Auto) 1000 L [place] # (Auto) 600 Eos # (Auto) 0 Baso # (Auto) 100 Sodium Potassium Chloride Carbon Dioxide BUN Creatinine Estimated GFR BUN/Creatinine Ratio Glucose Calcium Magnesium Troponin I 0.085 H Nasal Screen MRSA (PCR) Negative for mrsa 05/06/20 05/06/20 04:35 04:35 WBC RBC Hgb Hct MCV MCH MCHC RDW Plt Count Neut % (Auto) Lymph % (Auto) [place] % (Auto) Eos % (Auto) Baso % (Auto) Neut # (Auto) Lymph # (Auto) [place] # (Auto) Eos # (Auto) Baso # (Auto) Sodium 135 L Potassium 3.8 Chloride 106 Carbon Dioxide 22 BUN 22 H Creatinine 0.95 Estimated GFR 56.7 L BUN/Creatinine Ratio 23.2 H Glucose 99 Calcium 8.7 Magnesium 1.7 Troponin I 0.059 H Nasal Screen MRSA (PCR) Assessment & Plan Assessment & Plan narrative: 1. 80-year-old female admitted to the hospital for acute decompensated congestive heart failure -patient had a cardiac echo today, results of which are still pending -proBNP elevated at greater than 4700 on admission -will continue Lasix at 40 mg twice daily -will start potassium -will continue Coreg 2. Type 2 myocardial infarction Cardiac enzyme elevated at 0.085, decreased 0.59, patient with no acute chest pain Echo pending to evaluate LV function Will check fasting lipid profile Will start baby aspirin Patient on Coumadin and request to try a NOAC Will continue to monitor troponin Await repeat EKG 3. Paroxysmal atrial fibrillation Continue Coreg Continue diltiazem If rate control continues to be problematic, will discontinue the Coreg and consider metoprolol 4. Acute hypoxic respiratory failure, patient required high-flow oxygen on admission, oxygenation improved with diuresis and this has resolved -will use oxygen as needed -continue IV Lasix 5. Acute kidney injury -will repeat labs in the morning
[2020-05-06] MEDS: SODIUM CHLORIDE 0.9% FLUSH 10 ML IV (22:42)
[2020-05-07] VITALS (23 sets, daily range): BP systolic 115–146; BP diastolic 57–92; PULSE 67–112; RESP 16–40; TEMP 36.1–37.1; O2SAT 87–98
--- NOTE | 2020-05-07 02:20 | PC.NURSE ---
Pt alert and oriented x4. Denies any pain. Abdi cath intact and draining cloudy yellow urine. During sleep pt sats drooped to 87%. Started on 2L o2. Sats now stable running at 95%
[2020-05-07 05:05] LABS: INR 2.3 (0.9-1.3); Prothrombin Time 26.6 SECONDS (10.1-12.7)
[2020-05-07 05:12] LABS: Cholesterol 127 mg/dL (140-199); HDL Cholesterol 45 mg/dL (40-60); LDL Cholesterol Calculated 67 mg/dL (<100); Magnesium 1.6 mg/dL (1.6-2.3); Triglycerides 75 mg/dL (35-150)
[2020-05-07 05:13] LABS: BUN Creatinine Ratio 24.8 (6-22); Blood Urea Nitrogen 27 mg/dL (7-17); Calcium 8.5 mg/dL (8.4-10.2); Carbon Dioxide 27 mmol/L (22-32); Chloride 105 mmol/L (98-107); Estimated Glomerular Filt Rate 48.4 mL/min (>60); Glucose 86 mg/dL (80-110); HEMOLYSIS < 15 (0-50); Potassium 3.5 mmol/L (3.4-5.1); Sodium 138 mmol/L (137-145)
[2020-05-07 05:24] LABS: Troponin I 0.024 ng/mL (0.01-0.034)
[2020-05-07 05:47] LABS: Thyroid Stimulating Hormone 5.16 uIU/mL (0.47-4.68)
[2020-05-07] MEDS: POTASSIUM CHLORIDE 20 MEQ TAB 40 MEQ PO (07:44)
[2020-05-07] MEDS: carvediloL 12.5 MG TABLET PO ×2 (07:45→20:50)
[2020-05-07] MEDS: ASPIRIN EC 81 MG TABLET PO (07:49)
[2020-05-07] MEDS: dilTIAZem CD 120 MG CAP PO (07:50)
[2020-05-07] MEDS: ACETAMINOPHEN 325 MG TABLET 650 MG PO (09:56)
--- NOTE | 2020-05-07 10:40 | PC.NURSE ---
Pt is a/o x4, noted HR afib 110-140 this am, gave AM meds on arrival with good response. Tele is afib rate 70-90's. Denies CP notable SOB with exertion. Shower given, Jin patient Pt reporting since she is sassy with staff, she is feeling nearly good enough to go home. D/c planning discussed for Saturday. Continue lasix and monitoring HR with meds/ I and O. Pain to lower back, APAP effective.Using light for needs. 1PA to BR
[2020-05-07] MEDS: FUROSEMIDE 40 MG/4 ML VIAL IV ×2 (12:05→16:10)
--- NOTE | 2020-05-07 12:06 | CM.DPC ---
DCP: continued: Met again with pt during Team Bedside Rounds. Dr. Putnam explained that she would continue to keep pt in the hospital until tomorrow and then, if she is continuing her improvement, will be able to d/c home. Her Charbel did bring in her AFO and she is now mobilizing well. She states she is looking forward to going home but I am happy to stay until the doctor gives me the ok. P: home tomorrow, spouse will likely pick her up.
--- NOTE | 2020-05-07 13:10 | P.PN_ITS ---
Subjective Subjective Date Patient Seen: 05/07/20 Interval history: Patient reports she feels much better. However she continues to have intermittent shortness of breath. She denies any chest pain. Her palpitations have improved as well as her heart rate. She remains in atrial fibrillation. She is adamant that she returns home. She has an AFO that she uses it will not be using walker. Exam Vital Signs (past 8 hours): - 05/07/20 05:23 05/07/20 07:07 05/07/20 08:26 Temperature 97.0 F L 98.7 F Pulse Rate 90 100 H Respiratory Rate 18 20 Blood Pressure 144/90 H 143/92 H Pulse Oximetry 97 97 97 05/07/20 12:18 Temperature 98.1 F Pulse Rate 71 Respiratory Rate 18 Blood Pressure 125/61 Pulse Oximetry 96 Fraction of Inspired Oxygen 30 Oxygen Delivery Method Room Air Oxygen Flow Rate 0 Narrative Exam Narrative: Pleasant female resting comfortably in no obvious distress Neck: JVD longterm to the angle of the jaw Lungs: Decreased breath with very rare occasional crackles Cardiac exam: Irregularly irregular, normal S1-S2, a 2/6 systolic ejection Abdomen: Soft nontender nondistended Extremities: 1+ edema Objective Labs Result Diagrams: 05/06/20 04:35 05/07/20 04:42 Labs: Laboratory Results - last 24 hr 05/07/20 05/07/20 05/07/20 04:42 04:42 04:42 PT 26.6 H D INR 2.3 H Sodium 138 Potassium 3.5 Chloride 105 Carbon Dioxide 27 BUN 27 H Creatinine 1.09 H Estimated GFR 48.4 L BUN/Creatinine Ratio 24.8 H Glucose 86 Calcium 8.5 Magnesium 1.6 Troponin I 0.024 Triglycerides Cholesterol LDL Cholesterol, Calc HDL Cholesterol TSH 05/07/20 05/07/20 04:42 04:42 PT INR Sodium Potassium Chloride Carbon Dioxide BUN Creatinine Estimated GFR BUN/Creatinine Ratio Glucose Calcium Magnesium Troponin I Triglycerides 75 Cholesterol 127 L LDL Cholesterol, Calc 67 HDL Cholesterol 45 TSH 5.16 H Assessment & Plan Assessment & Plan narrative: Assessment & Plan narrative: 1. 80-year-old female admitted to the hospital for acute decompensated congestive heart failure -echo reveals normal LV size, LV systolic function mild to moderately reduced with an ejection fraction of 40-45%. -patient had a cardiac echo today, results of which are still pending -LV function is worsened since prior exam. There is mild to moderate global hypokinesis of the left ventricle - Elevated proBNP at greater than 4700 on admission -will continue Lasix at 40 mg twice daily -will start potassium -will continue Coreg - will state LANCE inhibitor and d/c diltaizem 2. Type 2 myocardial infarction Cardiac enzyme elevated at 0.085, decreased 0.59, patient with no acute chest pain Echo reveals mild to moderate global hypokinesis Will consult cardiology regarding need for further intervention Continue baby aspirin Patient on Coumadin and request to try a NOAC Troponin .024 LDL 67, consider low dose statin given likely CAD 3. Paroxysmal atrial fibrillation Continue Coreg discontinue cardizem I 4. Acute hypoxic respiratory failure, patient required high-flow oxygen on admission, oxygenation improved with diuresis and this has resolved -will use oxygen as needed -continue IV Lasix 5. Acute kidney injury -will repeat labs in the morning 6. Elevated TSH -Will check T4 to r/o Hypothyroidism Anticipate discharge home either tomorrow or transfer for cardiac catheterization. Will discuss final plan with cardiology.
[2020-05-07 15:21] LABS: Free T4, Direct Thyroxine 1.52 ng/dL (0.78-2.19)
[2020-05-07] MEDS: lisinopriL 10 MG TABLET PO (16:07)
[2020-05-07] MEDS: SODIUM CHLORIDE 0.9% FLUSH 10 ML IV (16:11)
[2020-05-07] MEDS: LOPERAMIDE 2 MG CAPSULE PO (18:01)
[2020-05-07] MEDS: APIXABAN 5 MG TABLET PO (20:49)
[2020-05-07] MEDS: ATORVASTATIN 20 MG TABLET PO (20:49)
[2020-05-08] VITALS (9 sets, daily range): BP systolic 115–145; BP diastolic 55–82; PULSE 58–100; RESP 15–23; TEMP 36.1–36.7; O2SAT 94–100
--- NOTE | 2020-05-08 00:50 | PC.NURSE ---
Addendum entered by Evy Fitzpatrick R.N. 05/08/20 03:47: Pt having frequent pauses and HR dropping to 40s non sustained. Showed strips to Neal PARTIDA. Continue to monitor Original Note: Pt HR frequently drops to low 40s non sustained. Sustaining in the 60s. Pt asymptomatic. Notified Neal PARTIDA. No orders received. [facility]
[2020-05-08 05:25] LABS: Blood Urea Nitrogen 26 mg/dL (7-17); Calcium 8.5 mg/dL (8.4-10.2); Carbon Dioxide 28 mmol/L (22-32); Chloride 104 mmol/L (98-107); Estimated Glomerular Filt Rate 53.5 mL/min (>60); Glucose 95 mg/dL (80-110); HEMOLYSIS < 15 (0-50); Potassium 3.9 mmol/L (3.4-5.1); Sodium 138 mmol/L (137-145)
[2020-05-08 06:10] LABS: NT-proBNP (BNP-Adult 18+) 2120 pg/mL (<450)
[2020-05-08] MEDS: FUROSEMIDE 40 MG/4 ML VIAL IV ×3 (08:18→23:46)
[2020-05-08] MEDS: APIXABAN 5 MG TABLET PO (08:18)
[2020-05-08] MEDS: POTASSIUM CHLORIDE 20 MEQ TAB 40 MEQ PO (08:18)
[2020-05-08] MEDS: lisinopriL 10 MG TABLET PO (08:18)
[2020-05-08] MEDS: ASPIRIN EC 81 MG TABLET PO (08:18)
[2020-05-08] MEDS: carvediloL 12.5 MG TABLET PO ×2 (08:18→20:31)
[2020-05-08] MEDS: LOPERAMIDE 2 MG CAPSULE PO ×4 (08:34→11:29)
[2020-05-08] MEDS: SODIUM CHLORIDE 0.9% FLUSH 10 ML IV ×2 (08:36→23:46)
--- NOTE | 2020-05-08 09:25 | P.PN_ITS ---
Subjective Subjective Date Patient Seen: 05/08/20 Interval history: 80-year-old female admitted to the hospital for acute hypoxic respiratory failure. Patient was found to have acute congestive heart failure. She has been diuresing quite nicely. Despite that she continues to have interm ittent shortness of breath. She was found to be hypoxic desaturating to 85% last night. In addition her heart rate dropped to 55. She has had excellent urine output. Her weight is down by over 2 kilos today. Exam Vital Signs (past 8 hours): - 05/08/20 04:31 05/08/20 06:29 05/08/20 08:17 Temperature 97.0 F L 97.5 F L Pulse Rate 69 75 Respiratory Rate 23 15 Blood Pressure 124/58 L 124/58 L Pulse Oximetry 97 95 96 05/08/20 08:18 Temperature Pulse Rate 100 H Respiratory Rate Blood Pressure 115/55 L Pulse Oximetry Fraction of Inspired Oxygen 30 Oxygen Delivery Method Nasal Cannula Oxygen Flow Rate 0 Narrative Exam Narrative: Pleasant female in no acute distress HEENT: Normocephalic atraumatic, extraocular muscles are intact, oropharynx is clear, neck: Decreased JVD Lungs: Decreased breath sounds with bibasilar crackles Cardiac exam: Irregularly irregular, normal S1-S2, 2/6 systolic ejection murmur Abdomen: S soft nontender nondistended Extremities: Trace edema bilaterally Objective Labs Result Diagrams: 05/06/20 04:35 05/08/20 04:50 Labs: Laboratory Results - last 24 hr 05/07/20 05/08/20 05/08/20 04:40 04:50 04:50 Sodium 138 Potassium 3.9 Chloride 104 Carbon Dioxide 28 BUN 26 H Creatinine 1.00 Estimated GFR 53.5 L BUN/Creatinine Ratio 26.0 H Glucose 95 Calcium 8.5 NT-Pro-B Natriuret Pep 2120 H Free T4 1.52 Assessment & Plan Assessment & Plan narrative: Impression : 80-year-old female admitted to the hospital for acute decompensated congestive heart failure -echo reveals normal LV size, LV systolic function mild to moderately reduced with an ejection fraction of 40-45%. -LV function worsened, significant dysynchronous pattern, mild to moderate global hypokinesis -RV normal size/function, Mild to moderate Aortic Stenosis -Moderate to Severe Mitral Regurgitation -Severe Tricuspid Regurgitation - Elevated proBNP at greater than 4700 on admission, now 2120 -will continue Lasix at 40 mg three times daily -will start potassium -will continue Coreg - will continue LANCE-I 2. Type 2 myocardial infarction Cardiac enzyme elevated at 0.085, decreased 0.59,.024 patient with no acute chest pain Echo reveals mild to moderate global hypokinesis Will consult cardiology regarding need for further intervention Continue baby aspirin Patient on Coumadin and request to try a NOAC LDL 67, consider low dose statin given likely CAD 3. Paroxysmal atrial fibrillation Continue Coreg discontinue cardizem 4. Acute hypoxic respiratory failure, Acute hypoxic respiratory failure, present on admission now resolved -this is likely multifactorial -patient hypoxic on admission but improved here in the hospital now on room air -she desaturates with sleeping to 85%, likely with underlying sleep apnea -suggest outpatient sleep study 5. Acute kidney injury -will repeat labs in the morning, renal function improved 6. Elevated TSH -Will check T4 to r/o Hypothyroidism - suspect Euthyroid Sick, will follow, outpatient evaluation, no Levothyroxine for now She has made significant progress but continues to be short of breath with e vidence of pulmonary edema on exam. Will continue IV lasix for now. Hopefully, will be able to discharge home tomorrow
--- NOTE | 2020-05-08 09:32 | PC.NURSE ---
Addendum entered by Jori Suarez R.N. 05/08/20 11:53: Pt up to [facility] for BM. Noted moderate amount of bright red blood per rectum. Continues with hematuria with only 275 ML UOP so far this shift (noted hematuria on initial assessment and reported to Dr. Putnam on AM rounds at bedside). Called to Dr. Putnam. Reported assessment findings. Dr. Putnam states she will order a CBC now and hold apixiban. Updated pt on plan of care. Original Note: Pt requesting immodium. Pt had soft/formed brown BM this AM. Educated pt indication for immodium is diarrhea. Pt verbalizes understanding and states I know my body. Administered immodium as ordered per pt request. Pt is requesting 2 capsules. Order is 1 capsule QID. Provided pt with 1 capsule. Pt expresses much concern that 1 will not be enough. I normally take 2 or 3 at a time. I carry them around in my purse. Approximately 3 minutes later, pt placed call light on and reported fecal incontinence. Assisted up to BSC, hygiene care provided. Placed called to MD per pt request. Reported pt concerns and requests for immodium despite non-diarrheal stools. Orders received and implemented.
--- NOTE | 2020-05-08 13:18 | CM.DPC ---
DCP: continued: met again with pt during Team Bedside Rounds. Dr. Putnam explained to all that pt was progressing in her recovery but was not ready yet for a d/c home. She will continue the IV diuretic with hope that pt will improve enough for home tomorrow. Asked if HH RN would be helpful but pt immediately said No..she much prefers to follow up directly with her providers in clinic for her acute on chronic medical conditions. P: remains home when stable for same. Spouse transport.
[2020-05-08 14:17] LABS: Add Manual Diff / Slide Review NO; Basophils Absolute Auto 100 /uL (0-100); Basophils Percent Auto 1.3 % (0-2); Eosinophils Absolute Auto 100 /uL (0-450); Hematocrit 36.7 % (36-46); Hemoglobin 12.2 g/dL (12.0-16.0); Lymphocytes Absolute Auto 700 /uL (1100-4500); Lymphocytes Percent Auto 13.9 % (25-40); Mean Corpuscular HGB Conc 33.2 % (30-36); Mean Corpuscular Hemoglobin 32.7 PG (26-34); Mean Corpuscular Volume 98.7 fL (80-100); Monocytes Absolute Auto 500 /uL (0-900); Monocytes Percent Auto 10.3 % (3-14); Neutrophils Absolute Auto 3800 /uL (1500-7000); Neutrophils Percent Auto 72.5 % (50-75); Platelet Count 191 X10^3/uL (150-400); Red Blood Cell Count 3.72 X10^6/uL (4.0-5.2); Red Cell Distribution Width 15.9 % (11.6-14.8); White Blood Cell Count 5.3 X10^3/uL (4.5-11.0)
[2020-05-08] MEDS: ATORVASTATIN 20 MG TABLET PO (20:31)
[2020-05-09 05:05] VITALS: BP 124/60; PULSE 85; RESP 16; TEMP 36.5; O2SAT 95
[2020-05-09 05:48] LABS: Add Manual Diff / Slide Review NO; Basophils Absolute Auto 100 /uL (0-100); Basophils Percent Auto 1.4 % (0-2); Eosinophils Absolute Auto 100 /uL (0-450); Eosinophils Percent Auto 2.5 % (2-4); Hematocrit 35.2 % (36-46); Hemoglobin 11.9 g/dL (12.0-16.0); Lymphocytes Absolute Auto 900 /uL (1100-4500); Mean Corpuscular HGB Conc 33.7 % (30-36); Mean Corpuscular Hemoglobin 33.5 PG (26-34); Mean Corpuscular Volume 99.5 fL (80-100); Monocytes Absolute Auto 700 /uL (0-900); Monocytes Percent Auto 13.1 % (3-14); Neutrophils Absolute Auto 3500 /uL (1500-7000); Platelet Count 178 X10^3/uL (150-400); Red Blood Cell Count 3.54 X10^6/uL (4.0-5.2); Red Cell Distribution Width 15.7 % (11.6-14.8); White Blood Cell Count 5.2 X10^3/uL (4.5-11.0)
[2020-05-09 05:54] LABS: BUN Creatinine Ratio 28.7 (6-22); Blood Urea Nitrogen 29 mg/dL (7-17); Calcium 8.4 mg/dL (8.4-10.2); Carbon Dioxide 28 mmol/L (22-32); Chloride 105 mmol/L (98-107); Estimated Glomerular Filt Rate 52.9 mL/min (>60); Glucose 85 mg/dL (80-110); HEMOLYSIS < 15 (0-50); Potassium 3.4 mmol/L (3.4-5.1); Sodium 139 mmol/L (137-145)
--- NOTE | 2020-05-09 06:44 | PC.NURSE ---
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 A-fib CVR/RVR, BBB. VSS, SpO2 .93% on RA, denies chest pain or shortness of breath. At 0640, c/o anxiety, no changes from previous assessment, HR 80s, RR 16, BP 132/75, SpO2 96%, continues to deny chest pain, shortness of breath, no nausea or dizziness. 950ml UOP in [place]di overnight after scheduled IV Lasix given at midnight, urine clearing from pink to yellow.
[2020-05-09 07:24] VITALS: BP 120/64; PULSE 84; RESP 16; TEMP 36.1; O2SAT 95
[2020-05-09 07:43] VITALS: BP 120/64; PULSE 84
[2020-05-09] MEDS: POTASSIUM CHLORIDE 20 MEQ TAB 40 MEQ PO (07:43)
[2020-05-09] MEDS: lisinopriL 10 MG TABLET PO (07:43)
[2020-05-09] MEDS: FUROSEMIDE 40 MG/4 ML VIAL IV (07:43)
[2020-05-09] MEDS: LOPERAMIDE 2 MG CAPSULE PO (07:44)
[2020-05-09 07:45] VITALS: PULSE 84
[2020-05-09] MEDS: carvediloL 12.5 MG TABLET PO (07:45)
[2020-05-09] MEDS: SODIUM CHLORIDE 0.9% FLUSH 10 ML IV (07:46)
--- NOTE | 2020-05-09 10:12 | PC.NURSE ---
Addendum entered by Negar Conklin R.N. 05/09/20 13:41: discharged from hospital at this time Original Note: PT WITH NO C/O CHEST PAIN, DYSPNEA, OR PAIN- REMAINS IN AFIB CVR AND HOPEFUL FOR DISCHARGE THIS DATE- REVIEWED WITH /GRISELDA CORONA/ AND OTHERS DURING ROUNDS THAT THIS WILL BE THE PLAN FOR HER- REMOVED IV ACCESS AND BURTON CATHETER AT THIS TIME- ALLOWING PT TO SHOWER AND WILL PREP FOR DISCHARGE - BOTH PT AND HER CONCUR WITH CURRENT PLAN AND DECLINE HOMEHEALTH NEEDS AT TIME OF DISCHARGE
--- NOTE | 2020-05-09 10:49 | CM.DPC ---
DCP Cont: Met with patient during team rounds. Patient's was at bedside, left for a while to run some errands. Plan is for home today. Confirmed that patient is not wanting home health services at this time. She will be following up with PCP, and cardiology. P: Patient is supposed to discharge home today. Namrata Holbrook RN/Steam Hoist Operator
--- NOTE | 2020-05-09 16:04 | P.DS_ITS ---
History of Present Illness History of Present Illness Date Patient Seen: 05/09/20 Chief complaint: Severe resp distress,AFIB Narrative: Mariela North is a 80-year-old female with a history of atrial fibrillation, current light tobacco use, peripheral arterial disease, hypertension, hyperlipidemia presented with shortness of breath and shakiness. She states that happened around noon and she was not doing anything at that time. She denied fever or chills, chest pain, nausea vomiting, abdominal pain, dysuria, has occasional loose stools, and incontinence. 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 She is currently taking warfarin for this and takes the equivalent of 2.5 mg 6 days a week except . In the emergency department they did start with a administration of IV diltiazem 20 mg and then put her on a nitro drip for about 3 hours. Chest x-ray indicated CHF with Sveta B lines. She was initiated on heated high-flow humidified oxygen but by the time she reached the floor she was only on room air. Her temp 96.7?, blood pressure 154/67, heart rate 85, respiratory rate 15 oxygen saturation 97% on room air. WBC 8.3, RBC 4.27, hemoglobin 14 hematocrit 43.1 platelet count 214, INR was 4.6 which is supratherapeutic, sodium 136, potassium 4.4, bicarb 105, CO2 14, BUN 20, creatinine 1.08, estimated GFR 48.9, glucose 196, lactate normal at 2.1, magnesium normal at 1.8, total bili normal at 1.1, AST 40, ALT 25, alk-phos, initial troponin was 0.015 and her 2nd troponin was 0.085, proBNP was 46 10, procalcitonin was normal at 0. 05 and COVID-19 was negative. Discharge Providers Provider Date of admission: 05/05/20 16:33 Discharge Date: 05/09/20 Primary care physician: Diana Pinzon PA-C Consults: 05/05/20 21:42 Consult to Cardiology Routine Comment: Consulting Provider: Chirag Shah Reason for consultation: CHF Has provider been notified: No 05/05/20 21:43 Consult to Respiratory Therapy Evaluate & Treat Comment: Physician Instructions: Evaluate and treat Discharge provider: India Putnam MD Summary Hospital Course Discharge Diagnosis: 1. Acute systolic heart failure, present on admission 2. Chronic atrial fibrillation 3. Acute respiratory failure 4. Acute kidney injury, secondary to stage III chronic kidney disease, unclear primary etiology 5. Peripheral vascular disease 6. Hypertension 7. Type 2 myocardial infarction Hospital Course: Patient was admitted to the hospital with acute respiratory failure, atrial fibrillation with a rapid ventricular response weight, and acute congestive heart failure. She was switched from diltiazem to oral diltiazem. Her heart rate improved. She was given IV Lasix with improvement of her congestive heart failure. Patient had an elevation of her troponin which then came back down to normal per it she had an echocardiogram which showed normal LV size. Left ventricular systolic function was [id number] reduced. Her ejection fraction was estimated to be 40-45%. Her left ventricular function was worsened compared to prior exam. She had significant dyssynchronous contraction pattern. She had mild to moderate global hypokinesis of the left ventricle. Diastolic function could not be assessed. She had bilateral atria that were severely dilated. She had moderate to severe mitral regurgitation. [id number] aortic stenosis and severe tricuspid regurgitation. Patient was switched from warfarin to Eliquis 5 mg twice daily. She had improvement of her acute kidney injury. Patient was placed on a statin given her type 2 ND and echocardiogram findings of global hypokinesis. The patient made slow but steady progress her breathing improved significantly. She was deemed appropriate for discharge and arrangements were made for her to discharge home. Her weight at the time of discharge is 50.9 kg Status at Discharge Cognitive/behavioral status at discharge: oriented Functional status at discharge: independent ambulation Overall status at discharge: patient is back to baseline Time Spent with Patient Time spent: Less than 30 minutes Exam Vital Signs (past 8 hours): Fraction of Inspired Oxygen 30 Oxygen Delivery Method Room Air Oxygen Flow Rate 0 Narrative Exam Narrative: Pleasant female in no acute distress Lungs: Decreased breath sounds with occasional scattered crackle Cardiac exam: Irregularly irregular, normal S1-S2, 2/6 systolic ejection Abdomen soft nontender nondistended Extremities: No edema Objective Labs Result Diagrams: 05/09/20 04:49 05/09/20 04:49 Labs: Laboratory Results - last 24 hr 05/09/20 05/09/20 04:49 04:49 WBC 5.2 RBC 3.54 L Hgb 11.9 L Hct 35.2 L MCV 99.5 MCH 33.5 MCHC 33.7 RDW 15.7 H Plt Count 178 Neut % (Auto) 66.0 Lymph % (Auto) 17.0 L Boyle % (Auto) 13.1 Eos % (Auto) 2.5 Baso % (Auto) 1.4 Neut # (Auto) 3500 Lymph # (Auto) 900 L Boyle # (Auto) 700 Eos # (Auto) 100 Baso # (Auto) 100 Sodium 139 Potassium 3.4 Chloride 105 Carbon Dioxide 28 BUN 29 H Creatinine 1.01 Estimated GFR 52.9 L BUN/Creatinine Ratio 28.7 H Glucose 85 Calcium 8.4 Discharge Plan Discharge Plan Patient Disposition: Home Discharge orders & Medications Prescriptions: New atorvastatin [Lipitor] 20 mg Tablet 20 mg PO BEDTIME Qty: 30 RF: 0 lisinopril 10 mg Tablet 10 mg PO DAILY Qty: 30 RF: 0 furosemide [Lasix] 40 mg tablet 40 mg PO DAILY Qty: 30 RF: 0 potassium chloride 20 mEq tablet extended release 20 meq PO DAILY Qty: 30 RF: 0 Eliquis 5 mg tablet 5 mg PO BID Qty: 60 RF: 0 Continued carvedilol 12.5 mg tablet 12.5 mg PO BID RF: 0 loperamide [Anti-Diarrheal (loperamide)] 2 mg Capsule 2 mg PO Q4H PRN (Reason: Diarrhea) RF: 0 Discontinued diltiazem HCl 120 mg Capsule,Ext.Rel 24h Degradable 120 mg PO DAILY RF: 0 warfarin 5 mg tablet 2.5 mg PO QPM RF: 0 Follow up/Referrals: Diana Pinzon PA-C [Primary Care Provider] - (MAY 19Saturday @ [address] [place] [address]) Chirag Shah MD [Physician] - ([facility] [employer]ICE TO CALL YOU WITH APPT. [phone]) Discharge Health Status Multidrug resistant organism: No MDRO Diet/Activity/Treatments Diet: Low-sodium and Low-cholesterol Activity: as tolerated Visit Report/Discharge Packet Visit Report Forms: Patient Portal/API, Stroke Signs & Symptoms Discharge Data Primary Care Provider: Diana Pinzon Discharges patient from system. Discharge Date/Time: 05/09/20 12:25
== END 2020-05-09 12:25 | disposition home or self-care (01) | DRG 280 ==
LOC: ED 16:32 → AC 16:34 → ICU 05-06 09:27 → AC 05-06 13:48
PROVIDERS: Internal Medicine; Nurse Practitioner Family; Admitting Provider Internal Medicine; Emergency Provider Emergency Medicine; Family Provider Physician Assistant; PCP Student in an Organized Health Care Education/Training Program; Referring Provider Emergency Medicine; Visit Provider Internal Medicine
DX: I13.0 Hypertensive heart and chronic kidney disease with heart failure and stage 1 through stage 4 chronic kidney disease, or unspecified chronic kidney disease (principal); J96.01 Acute respiratory failure with hypoxia; I21.A1 Myocardial infarction type 2; I50.21 Acute systolic (congestive) heart failure; N17.9 Acute kidney failure, unspecified; I48.0 Paroxysmal atrial fibrillation; N18.3 Chronic kidney disease, stage 3 (moderate); F17.210 Nicotine dependence, cigarettes, uncomplicated; I73.9 Peripheral vascular disease, unspecified; Z11.59 Encounter for screening for other viral diseases
CPT/HCPCS: 36415; 36600; 71045; 80048; 80053; 80061; 82550; 82553; 82728; 82805; 83605; 83735; 83880; 84145; 84439; 84443; 84484; 85025; 85610; 85730; 86140; 87040; 87086; 87635; 87797; 93005; 93010; 93306; 94760; 96365; 96366; 96368; 96375; 99284; 99285; J1940

== ENCOUNTER → 2020-12-08 09:22 | Outpatient (CLI) | payer MEDICARE, SELFPAY ==
[2020-05-05 17:38] VITALS: BMI 21.2
== END ==
PROVIDERS: Family Provider Physician Assistant; PCP Student in an Organized Health Care Education/Training Program; Referring Provider Student in an Organized Health Care Education/Training Program; Visit Provider Family Medicine
DX: I70.261 Atherosclerosis of native arteries of extremities with gangrene, right leg (principal); L97.519 Non-pressure chronic ulcer of other part of right foot with unspecified severity; L97.319 Non-pressure chronic ulcer of right ankle with unspecified severity; F17.210 Nicotine dependence, cigarettes, uncomplicated; Z79.01 Long term (current) use of anticoagulants; N18.32 Chronic kidney disease, stage 3b; M85.871 Other specified disorders of bone density and structure, right ankle and foot
CPT/HCPCS: 73630; 93923; 99205; 99213

== ENCOUNTER → 2020-12-08 11:41 | Outpatient (CLI) | payer MEDICARE, SELFPAY ==
[2020-05-05 17:38] VITALS: BMI 21.2
--- NOTE | 2020-12-08 | DI.RAD.S_ITS ---
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 COMPARISON: [facility], , FOOT 3V RIGHT, 01/05/2012, 12:47. FINDINGS: Bones: Diffuse osteopenia. Chronic deformity of the distal aspect of the 5th metatarsal consistent with remote trauma. No fractures or dislocations. No suspicious bony lesions. Soft tissues: No tibiotalar joint effusion. Achilles tendon appears normal. Small vessel calcifications are consistent with diabetes. IMPRESSION: 1. Diffuse osteopenia. 2. No evidence acute bony abnormality of the right foot. If clinical suspicion and/or symptoms persist, further assessment with repeat plain films, or advanced imaging (e.g., CT, MRI, or bone scan) may be helpful for further assessment. Dictated by: Ritesh Hoffman M.D. on 12/08/2020 at 12:31 Approved by: Ritesh Hoffman M.D. on 12/08/2020 at 12:33
== END ==
PROVIDERS: Family Provider Physician Assistant; PCP Student in an Organized Health Care Education/Training Program; Referring Provider Family Medicine; Visit Provider Family Medicine
DX: M85.871 Other specified disorders of bone density and structure, right ankle and foot (principal); L97.519 Non-pressure chronic ulcer of other part of right foot with unspecified severity; I70.261 Atherosclerosis of native arteries of extremities with gangrene, right leg
CPT/HCPCS: 73630

== ENCOUNTER 2022-03-06 20:21 | Emergency (ER) | payer MEDICARE, SELFPAY ==
[2020-05-05 17:38] VITALS: BMI 21.2
[2022-03-06] VITALS (53 sets, daily range): BP systolic 86–140; BP diastolic 42–79; PULSE 96–124; RESP 16–59; TEMP 35.1–36.4; O2SAT 82–100
--- NOTE | 2022-03-06 20:36 | ED_ITS ---
HPI - Syncope <Bina Kumar DO - Last Filed: 03/07/22 06:39> General Chief Complaint: Syncope Stated Complaint: syncope/glf Time Seen by Provider: 03/06/22 20:30 Source: patient, EMS and old records reviewed Mode of arrival: EMS History of Present Illness HPI narrative: This is an 81-year-old female with history of AFib on Eliquis, tobacco use, peripheral arterial disease, hypertension and dyslipidemia with prior right lower extremity AKA for ?circulation.? Patient arrives today for ground level fall but she does not recall the episode she does not recall falling to the ground. Concern for possible syncope patient's blood pressure was 70 systolic initially came up to 100 systolic with EMS. Patient states that she feels unwell today. She denies headache, she denies chest pain or active shortness of breath, she denies any abdominal pain. She denies any active nausea or vomiting. She does not appreciate any recent diarrhea. No black or bloody stools although she states she does not really remember. She does note that she has had a blood transfusion in past she does not recall why. She can not tell me her name, that she is here at the hospital in [place] but is unsure of the year. Her was recently hospitalized at an outside facility and he is the main caregiver at the home and returned today to the house. Related Data Home Medications Medication Instructions Recorded Confirmed carvedilol 12.5 mg tablet 12.5 mg PO BID 05/05/20 05/06/20 loperamide 2 mg capsule 2 mg PO Q4H PRN 05/06/20 05/06/20 (Anti-Diarrheal (loperamide)) Previous Rx's Medication Instructions Recorded apixaban 5 mg tablet (Eliquis) 5 mg PO BID #60 tab 05/09/20 atorvastatin 20 mg tablet (Lipitor) 20 mg PO BEDTIME #30 tab 05/09/20 furosemide 40 mg tablet (Lasix) 40 mg PO DAILY #30 tab 05/09/20 lisinopril 10 mg tablet 10 mg PO DAILY #30 tab 05/09/20 potassium chloride 20 mEq 20 meq PO DAILY #30 tab 05/09/20 tablet,extended release Allergies Allergy/AdvReac Type Severity Reaction Status Date / Time No Known Drug Allergies Allergy Verified 05/05/20 14:50 Review of Systems <Bina Kumar DO - Last Filed: 03/07/22 06:39> Review of Systems ROS Unobtainable: All systems reviewed & are unremarkable except as noted in HPI and below Patient History <Bina Kumar DO - Last Filed: 03/07/22 06:39> Medical History (Updated 03/07/22 @ 04:57 by Bina Kumar DO) Atrial fibrillation with RVR Surgical History Back pain with history of spinal surgery Femoral-popliteal bypass graft occlusion Family History Mother Old age Social History household members: spouse Smoking Status: Former smoker Smoking Status: Former smoker alcohol intake frequency: 0-2 drinks per day Substance Use Type: does not use Exam <Bina Kumar DO - Last Filed: 03/07/22 06:39> Narrative Exam Narrative: GEN: Ill-appearing, pale, female alert and oriented to self and location and some history, patient appears to be in severe distress. HEENT: Atraumatic, pupils are equal round reactive to light, extraocular move ments are intact, nares are clear, TMs are clear with no fluid, positive for conjunctival pallor. Throat is clear without any exudates, erythema, tonsillar enlargement or uvular deviation HEART: Regular rate and rhythm without murmur, clicks, rubs. LUNGS:Lungs clear to auscultation, no wheezes, rales, crackles, chest moves symmetrically, mild tachypnea, no accessory muscle use. Patient able to speak in full sentences. ABD:bowel sounds normal, soft, non-tender, no guarding, rebound, rigidity, no masses noted, no hepatosplenomegaly, patient has brownish stool a GODWIN with no mass. Stool occult is positive. :No CVA tenderness MSCL: Non-tender, no muscle atrophy, normal range of motion of upper extremities. Patient has a right AKA. Stump appears clean dry and intact without any skin changes. NEURO:CN 2-12 intact, sensation normal SKIN: No petechia, no ecchymosis. Initial Vital Signs Initial Vital Signs: Vital Signs Temperature 96.9 F L 03/06/22 20:21 Pulse Rate 111 H 03/06/22 20:21 Respiratory Rate 25 H 03/06/22 20:21 Blood Pressure 115/68 03/06/22 20:21 Pulse Oximetry 97 03/06/22 20:21 <Raisa Leblanc MD - Last Filed: 03/06/22 22:02> Initial Vital Signs Initial Vital Signs: Vital Signs Temperature 96.9 F L 03/06/22 20:21 Pulse Rate 111 H 03/06/22 20:21 Respiratory Rate 25 H 03/06/22 20:21 Blood Pressure 115/68 03/06/22 20:21 Pulse Oximetry 97 03/06/22 20:21 Scores <Bina Kumar DO - Last Filed: 03/07/22 06:39> GCS [place] coma scale eye opening: Spontaneous [place] coma scale verbal response: Confused [place] coma scale motor response: Obey commands [place] coma scale total score: 14 <Raisa Leblanc MD - Last Filed: 03/06/22 22:02> GCS [place] coma scale total score: 14 Course <Bina Kumar DO - Last Filed: 03/07/22 06:39> Orders Ordered: ED Orders 03/06/22 22:32 ABG [Arterial Blood Gas] Stat Dextrose (Dextrose 50 % In Water 25 Gm/50 Ml Syringe) 25 gm IV PRN PRN PRN Reason: Hypoglycemia Sodium Chloride (Normal Saline 0.9%) 1,000 mls @ 100 mls/hr IV CONT SUE Last Infusion: 03/07/22 06:22 Dose: 0 mls/hr Documented by: Admin: 03/07/22 05:52 Dose: 100 mls/hr Documented by: DAVID Discontinued Medications Phytonadione 10 mg/ Sodium (Chloride) 101 mls @ 202 mls/hr IV NOW ONE Stop: 03/06/22 20:59 Last Infusion: 03/06/22 22:01 Dose: 0 mls/hr Documented by: Admin: 03/06/22 21:22 Dose: 202 mls/hr Documented by: VILMA Calcium Gluconate 4.65 meq/ (Sodium Chloride) 60 mls @ 180 mls/hr IV NOW ONE Stop: 03/06/22 22:03 Last Infusion: 03/06/22 23:29 Dose: 0 mls/hr Documented by: Admin: 03/06/22 23:05 Dose: 180 mls/hr Documented by: VILMA Prothrombin Complex Concent ( Human) 2,500 unit/Miscellaneous 100 mls @ 352.714 mls/hr IV NOW ONE; Protocol Stop: 03/06/22 22:08 Last Infusion: 03/06/22 23:25 Dose: 0 unit/kg/min, 0 mls/hr Documented by: Admin: 03/06/22 23:04 Dose: 3 unit/kg/min, 352.714 mls/hr Documented by: VILMA Piperacillin Sod/Tazobactam (Sod 4.5 gm/ Sodium Chloride) 100 mls @ 200 mls/hr IV NOW ONE Stop: 03/07/22 01:32 Last Infusion: 03/07/22 03:45 Dose: 0 mls/hr Documented by: Admin: 03/07/22 03:19 Dose: 200 mls/hr Documented by: DAVID Insulin Human Regular (Insulin Regular 100 Unit/Ml 3 Ml Vial) 5 unit IV NOW ONE Stop: 03/06/22 23:04 Last Admin: 03/07/22 05:41 Dose: Not Given Documented by: DAVID Ondansetron HCl (Ondansetron 4 Mg/2 Ml Inj) 4 mg IV NOW ONE Stop: 03/06/22 20:38 Last Admin: 03/06/22 23:26 Dose: Not Given Documented by: VILMA Pantoprazole Sodium (Pantoprazole 40 Mg Vial) 80 mg IV NOW ONE Stop: 03/06/22 20:38 Last Admin: 03/06/22 21:22 Dose: 80 mg Documented by: VILMA Sodium Bicarbonate (Sodium Bicarb 8.4% Syringe) 50 meq IV NOW ONE Stop: 03/06/22 23:04 Last Admin: 03/07/22 05:41 Dose: Not Given Documented by: DAVID Sodium Polystyrene Sulfonate (Sodium Polystyrene Sulfon/Sorb 15 Gm/60 Ml Cup) 15 gm PO NOW ONE Stop: 03/06/22 23:04 Last Admin: 03/07/22 05:41 Dose: Not Given Documented by: DAVID Reevaluation(s) Reevaluation #1: Patient states she is full code and agreeable to blood transfusion. Reevaluation #2: Patient reportedly on Eliquis. Patient states Eliquis on recheck. Discussed with . No reported warfarin at for her, he is unclear for anyone else. Does appear from her chart she was on warfarin in 2019. I also spoke with patient's over the phone who does not believe she is taking warfarin, when asked if there was any warfarin in the house unclear if there may potentially be any. Time: 21:32 Reevaluation #3: On recheck patient's color is improving, she has had very labile blood pressures intermittently but seems to have improvement of her mentation in over time blood pressure. Consultations Consultation #1: Dr. Leblanc, general surgery. Reviewed possible GI bleed, patient does not have active bleeding on examination but has positive stool occult, initial labs are reviewed. Asks for call back for update if patient is worsening. Consultation #2: Dr. Jean Baptiste, [facility]. Evaluated patient here in the department based on her multiple comorbidities, acute renal failure along with elevated cardiac enzymes and vascular history feels patient would be benefitted from transfer to a larger facility. Time: 22:22 Consultation #3: Re-contacted Dr. Leblanc, with patient CT findings and small area of hemoperitoneum, colitis which could potentially be ischemic. She reviewed patients imaging. We are currently attempting to transfer but could potentially be a large delay in time. At this time patient is not a surgical candidate based on a INR 3.5 even with attempted correction. Would be open to taking patient to the OR if this were to be improved. Does agree with plan to transfer to outside facility with more resources available. Dr. Chowdhury, house worker general, [facility]. Reviewed patient's labs, imaging findings and recent HPI and exam. At this time feels patient is in warranted to be in the ICU and feels patient be appropriate to step-down unit asked that we speak with General surgery for any additional input. Additional Consultation(s): (general surgery) [place]: Recommends consultation with Gastroenterology, they are happy to consult with the patient but amount of hemoperitoneum is not consistent with patient's anemia and feel patient would also benefit from gastroenterology evaluation. Patient is too complicated medically to be admitted to General surgery. Dr. Clemons, GI [place]: Happy to consult on patient and follow-up for scope when patient is more stable. Dr. Ruth Perera, hospitalist. At this time feels appropriately for step- down unit but if has increasing oxygen requirements or worsening changes ask for recontact upgrade to ICU status. Reviewed symptomatic anemia possible GI bleed but also hemoperitoneum but not accounting for patient's complete drop in hemoglobin. Reviewed all labs, findings and imaging as well as patient's HPI course of treatment. Vital Signs Vital signs: Vital Signs - 8 hr 03/06/22 22:40 Pulse Rate 108 H Respiratory Rate 31 H Blood Pressure 86/53 L Pulse Oximetry 91 <Raisa Leblanc MD - Last Filed: 03/06/22 22:02> Orders Ordered: ED Orders 03/06/22 22:32 ABG [Arterial Blood Gas] Stat Dextrose (Dextrose 50 % In Water 25 Gm/50 Ml Syringe) 25 gm IV PRN PRN PRN Reason: Hypoglycemia Sodium Chloride (Normal Saline 0.9%) 1,000 mls @ 100 mls/hr IV CONT SUE Last Infusion: 03/07/22 06:22 Dose: 0 mls/hr Documented by: Admin: 03/07/22 05:52 Dose: 100 mls/hr Documented by: DAVID Discontinued Medications Phytonadione 10 mg/ Sodium (Chloride) 101 mls @ 202 mls/hr IV NOW ONE Stop: 03/06/22 20:59 Last Infusion: 03/06/22 22:01 Dose: 0 mls/hr Documented by: Admin: 03/06/22 21:22 Dose: 202 mls/hr Documented by: VILMA Calcium Gluconate 4.65 meq/ (Sodium Chloride) 60 mls @ 180 mls/hr IV NOW ONE Stop: 03/06/22 22:03 Last Infusion: 03/06/22 23:29 Dose: 0 mls/hr Documented by: Admin: 03/06/22 23:05 Dose: 180 mls/hr Documented by: VILMA Prothrombin Complex Concent ( Human) 2,500 unit/Miscellaneous 100 mls @ 352.714 mls/hr IV NOW ONE; Protocol Stop: 03/06/22 22:08 Last Infusion: 03/06/22 23:25 Dose: 0 unit/kg/min, 0 mls/hr Documented by: Admin: 03/06/22 23:04 Dose: 3 unit/kg/min, 352.714 mls/hr Documented by: VILMA Piperacillin Sod/Tazobactam (Sod 4.5 gm/ Sodium Chloride) 100 mls @ 200 mls/hr IV NOW ONE Stop: 03/07/22 01:32 Last Infusion: 03/07/22 03:45 Dose: 0 mls/hr Documented by: Admin: 03/07/22 03:19 Dose: 200 mls/hr Documented by: DAVID Insulin Human Regular (Insulin Regular 100 Unit/Ml 3 Ml Vial) 5 unit IV NOW ONE Stop: 03/06/22 23:04 Last Admin: 03/07/22 05:41 Dose: Not Given Documented by: DAVID Ondansetron HCl (Ondansetron 4 Mg/2 Ml Inj) 4 mg IV NOW ONE Stop: 03/06/22 20:38 Last Admin: 03/06/22 23:26 Dose: Not Given Documented by: VILMA Pantoprazole Sodium (Pantoprazole 40 Mg Vial) 80 mg IV NOW ONE Stop: 03/06/22 20:38 Last Admin: 03/06/22 21:22 Dose: 80 mg Documented by: VILMA Sodium Bicarbonate (Sodium Bicarb 8.4% Syringe) 50 meq IV NOW ONE Stop: 03/06/22 23:04 Last Admin: 03/07/22 05:41 Dose: Not Given Documented by: DAVID Sodium Polystyrene Sulfonate (Sodium Polystyrene Sulfon/Sorb 15 Gm/60 Ml Cup) 15 gm PO NOW ONE Stop: 03/06/22 23:04 Last Admin: 03/07/22 05:41 Dose: Not Given Documented by: DAVID Vital Signs Vital signs: Vital Signs - 8 hr 03/06/22 22:40 Pulse Rate 108 H Respiratory Rate 31 H Blood Pressure 86/53 L Pulse Oximetry 91 MDM - Syncope <Bina Kumar DO - Last Filed: 03/07/22 06:39> Lab Data Result diagrams: 03/07/22 03:40 03/07/22 03:40 Labs: Lab Results 03/06/22 03/06/22 03/06/22 Range/Units 20:29 20:29 20:29 WBC 9.1 (4.5-11.0) X10^3/uL RBC 1.46 L (4.0-5.2) X10^6/uL Hgb 4.2 L* (12.0-16.0) g/dL Hct 14.4 L* (36-46) % MCV 98.8 (80-100) fL MCH 28.5 (26-34) PG MCHC 28.9 L (30-36) % RDW 19.5 H (11.6-14.8) % Plt Count 216 (150-400) X10^3/uL Neut % (Auto) 89.1 H (50-75) % Lymph % (Auto) 4.3 L (25-40) % Brooks % (Auto) 6.3 (3-14) % Eos % (Auto) 0.0 L (2-4) % Baso % (Auto) 0.3 (0-2) % Neut # (Auto) 8100 H (5448-7825) /uL Lymph # (Auto) 400 L (3088-0148) /uL Brooks # (Auto) 600 (0-900) /uL Eos # (Auto) 0 (0-450) /uL Baso # (Auto) 0 (0-100) /uL RBC Morphology See below Hypochromasia 2+ H Anisocytosis 2+ H Ovalocytes 2+ H Schistocytes 1+ H Percent Retic (1.1-2.6) % PT 88.4 H (10.1-12.7) SECONDS INR 7.5 H* (0.9-1.3) APTT 37 H D (26.4-36.2) SECONDS Fibrinogen (211-428) mg/dL Sodium 140 (137-145) mmol/L Potassium 6.1 H (3.4-5.1) mmol/L Chloride 113 H (98-107) mmol/L Carbon Dioxide 8 L* (22-32) mmol/L BUN 70 H (7-17) mg/dL Creatinine 2.06 H (0.52-1.04) mg/dL Estimated GFR 24 L (>60) mL/min BUN/Creatinine Ratio 34.0 H (6-22) Glucose 80 (80-110) mg/dL Lactate (0.7-2.1) mmol/L Calcium 7.4 L (8.4-10.2) mg/dL Iron (37-170) ug/dL TIBC (265-497) ug/dL % Saturation (15-50) % Transferrin (206-381) mg/dL Total Bilirubin 0.8 (0.2-1.3) mg/dL AST 148 H (14-36) IU/L ALT 102 H (<35) IU/L Alkaline Phosphatase 95 (38-126) U/L Lactate Dehydrogenase (313-618) U/L Troponin I 0.141 H* (0.01-0.034) ng/mL NT-Pro-B Natriuret Pep (<450) pg/mL Total Protein 5.9 L (6.3-8.2) g/dL Albumin 3.3 L (3.5-5.0) g/dL Globulin 2.6 (1.7-4.1) g/dL Albumin/Globulin Ratio 1.3 (1.0-2.8) Lipase 286 (23-300) U/L SARS-CoV-2 (PCR) (Negative) Blood Type Antibody Screen Crossmatch 03/06/22 03/06/22 03/06/22 Range/Units 20:29 20:29 20:29 WBC (4.5-11.0) X10^3/uL RBC (4.0-5.2) X10^6/uL Hgb (12.0-16.0) g/dL Hct (36-46) % MCV (80-100) fL MCH (26-34) PG MCHC (30-36) % RDW (11.6-14.8) % Plt Count (150-400) X10^3/uL Neut % (Auto) (50-75) % Lymph % (Auto) (25-40) % Brooks % (Auto) (3-14) % Eos % (Auto) (2-4) % Baso % (Auto) (0-2) % Neut # (Auto) (0444-4929) /uL Lymph # (Auto) (7639-5815) /uL Brooks # (Auto) (0-900) /uL Eos # (Auto) (0-450) /uL Baso # (Auto) (0-100) /uL RBC Morphology Hypochromasia Anisocytosis Ovalocytes Schistocytes Percent Retic (1.1-2.6) % PT (10.1-12.7) SECONDS INR (0.9-1.3) APTT (26.4-36.2) SECONDS Fibrinogen (211-428) mg/dL Sodium (137-145) mmol/L Potassium (3.4-5.1) mmol/L Chloride (98-107) mmol/L Carbon Dioxide (22-32) mmol/L BUN (7-17) mg/dL Creatinine (0.52-1.04) mg/dL Estimated GFR (>60) mL/min BUN/Creatinine Ratio (6-22) Glucose (80-110) mg/dL Lactate (0.7-2.1) mmol/L Calcium (8.4-10.2) mg/dL Iron (37-170) ug/dL TIBC (265-497) ug/dL % Saturation (15-50) % Transferrin (206-381) mg/dL Total Bilirubin (0.2-1.3) mg/dL AST (14-36) IU/L ALT (<35) IU/L Alkaline Phosphatase (38-126) U/L Lactate Dehydrogenase (313-618) U/L Troponin I (0.01-0.034) ng/mL NT-Pro-B Natriuret Pep 4850 H (<450) pg/mL Total Protein (6.3-8.2) g/dL Albumin (3.5-5.0) g/dL Globulin (1.7-4.1) g/dL Albumin/Globulin Ratio (1.0-2.8) Lipase (23-300) U/L SARS-CoV-2 (PCR) Negative (Negative) Blood Type A Positive Antibody Screen Negative Crossmatch See Detail 03/06/22 03/06/22 03/06/22 Range/Units 20:29 20:29 20:29 WBC (4.5-11.0) X10^3/uL RBC (4.0-5.2) X10^6/uL Hgb (12.0-16.0) g/dL Hct (36-46) % MCV (80-100) fL MCH (26-34) PG MCHC (30-36) % RDW (11.6-14.8) % Plt Count (150-400) X10^3/uL Neut % (Auto) (50-75) % Lymph % (Auto) (25-40) % Brooks % (Auto) (3-14) % Eos % (Auto) (2-4) % Baso % (Auto) (0-2) % Neut # (Auto) (5778-5936) /uL Lymph # (Auto) (1269-2342) /uL Brooks # (Auto) (0-900) /uL Eos # (Auto) (0-450) /uL Baso # (Auto) (0-100) /uL RBC Morphology Hypochromasia Anisocytosis Ovalocytes Schistocytes Percent Retic 2.4 (1.1-2.6) % PT (10.1-12.7) SECONDS INR (0.9-1.3) APTT (26.4-36.2) SECONDS Fibrinogen (211-428) mg/dL Sodium (137-145) mmol/L Potassium (3.4-5.1) mmol/L Chloride (98-107) mmol/L Carbon Dioxide (22-32) mmol/L BUN (7-17) mg/dL Creatinine (0.52-1.04) mg/dL Estimated GFR (>60) mL/min BUN/Creatinine Ratio (6-22) Glucose (80-110) mg/dL Lactate 9.1 H* (0.7-2.1) mmol/L Calcium (8.4-10.2) mg/dL Iron (37-170) ug/dL TIBC (265-497) ug/dL % Saturation (15-50) % Transferrin (206-381) mg/dL Total Bilirubin (0.2-1.3) mg/dL AST (14-36) IU/L ALT (<35) IU/L Alkaline Phosphatase (38-126) U/L Lactate Dehydrogenase 1328 H (313-618) U/L Troponin I (0.01-0.034) ng/mL NT-Pro-B Natriuret Pep (<450) pg/mL Total Protein (6.3-8.2) g/dL Albumin (3.5-5.0) g/dL Globulin (1.7-4.1) g/dL Albumin/Globulin Ratio (1.0-2.8) Lipase (23-300) U/L SARS-CoV-2 (PCR) (Negative) Blood Type Antibody Screen Crossmatch 03/06/22 03/06/22 Range/Units 20:29 20:29 WBC (4.5-11.0) X10^3/uL RBC (4.0-5.2) X10^6/uL Hgb (12.0-16.0) g/dL Hct (36-46) % MCV (80-100) fL MCH (26-34) PG MCHC (30-36) % RDW (11.6-14.8) % Plt Count (150-400) X10^3/uL Neut % (Auto) (50-75) % Lymph % (Auto) (25-40) % Brooks % (Auto) (3-14) % Eos % (Auto) (2-4) % Baso % (Auto) (0-2) % Neut # (Auto) (4571-7528) /uL Lymph # (Auto) (8196-4428) /uL Brooks # (Auto) (0-900) /uL Eos # (Auto) (0-450) /uL Baso # (Auto) (0-100) /uL RBC Morphology Hypochromasia Anisocytosis Ovalocytes Schistocytes Percent Retic (1.1-2.6) % PT (10.1-12.7) SECONDS INR (0.9-1.3) APTT (26.4-36.2) SECONDS Fibrinogen 286 (211-428) mg/dL Sodium (137-145) mmol/L Potassium (3.4-5.1) mmol/L Chloride (98-107) mmol/L Carbon Dioxide (22-32) mmol/L BUN (7-17) mg/dL Creatinine (0.52-1.04) mg/dL Estimated GFR (>60) mL/min BUN/Creatinine Ratio (6-22) Glucose (80-110) mg/dL Lactate (0.7-2.1) mmol/L Calcium (8.4-10.2) mg/dL Iron 27 L (37-170) ug/dL TIBC 322 (265-497) ug/dL % Saturation 8 L (15-50) % Transferrin 222 (206-381) mg/dL Total Bilirubin (0.2-1.3) mg/dL AST (14-36) IU/L ALT (<35) IU/L Alkaline Phosphatase (38-126) U/L Lactate Dehydrogenase (313-618) U/L Troponin I (0.01-0.034) ng/mL NT-Pro-B Natriuret Pep (<450) pg/mL Total Protein (6.3-8.2) g/dL Albumin (3.5-5.0) g/dL Globulin (1.7-4.1) g/dL Albumin/Globulin Ratio (1.0-2.8) Lipase (23-300) U/L SARS-CoV-2 (PCR) (Negative) Blood Type Antibody Screen Crossmatch Point of Care Testing Stool Occult Blood Positive Imaging Data CT scan - head: Radiologist's Impression: Launch?Image [address] [address] [address] Scan Report Signed Patient: Mariela North MR#: [id number] : 1940 Acct:[id number] Age/Sex: 81 / F Date of Service: 03/06/22 Loc: ED Accession Number: [id number] ?? Procedure: CT head/brain wo con Ordering Provider: Bina Kumar D.O. PROCEDURE:? CT HEAD/BRAIN WO CON ? INDICATIONS:? syncope ? TECHNIQUE:? Noncontrast 4.5 mm thick angled axial sections acquired from the foramen magnum to the vertex, with coronal and sagittal reformats.? For radiation dose reduction, the following was used:? automated exposure control, adjustment of mA and/or kV according to patient size.? ? COMPARISON:? [facility], CT, HEAD WITHOUT CONTRAST, 04/12/2016, 6:59. ? FINDINGS:? Image quality:? There is motion artifact slightly limiting evaluation.? ? CSF spaces:? Basal cisterns are patent.? No extra-axial fluid collections.? There is moderate to severe cerebral volume loss, with resultant ventricular and sulcal prominence.? Findings are similar to the prior study.? ? Brain:? No intracranial hemorrhage, mass, or mass effect.? There are subcortical, periventricular and deep white matter hypodensities consistent with moderate chronic small vessel ischemic changes.? The greenwood-white matter junction appears preserved.? There is intracranial internal carotid artery atherosclerosis.? ? Skull and face:? Calvarium and visualized facial bones appear intact, without suspicious lesions.? There is osteopenia. ? Sinuses:? Visualized sinuses and mastoids are clear.? ? IMPRESSION:? ? 1. No acute intracranial abnormality. ? 2. Moderate to severe cerebral volume loss and moderate chronic white matter small vessel ischemic changes.? ? ? Dictated by: Stephen Machado M.D. on 03/06/2022 at 21:38 ? ? Approved by: Stephen Machado M.D. on 03/06/2022 at 21:41?? Chest x-ray: Radiologist's Impression: [place] [address] XRay Report Signed Patient: Mariela North MR#: [id number] : 1940 Acct:[id number] Age/Sex: 81 / F Date of Service: 03/06/22 Loc: 90A-1 Accession Number: [id number] ?? Procedure: XR chest 1V Ordering Provider: Bina Kumar D.O. PROCEDURE:? XR CHEST 1V ? INDICATIONS:? syncope ? TECHNIQUE:? One view of the chest was acquired.? ? COMPARISON:? [facility], , XR CHEST 1V, 05/05/2020, 15:22. ? FINDINGS:? ? Surgical changes and devices:? None.? ? Lungs and pleura:? There is hyperinflation of the lungs with flattening of the hemidiaphragms compatible with COPD.? No definite acute consolidation.? No pleural effusions or pneumothorax.? ? Mediastinum:? Mediastinal contours appear prominent due to rotation and portable supine technique.? Heart size is enlarged.? ? Bones and chest wall:? No suspicious bony lesions.? Overlying soft tissues appear unremarkable.? ? IMPRESSION:? ? 1.? No definite acute cardiopulmonary disease. ? 2. Cardiomegaly.? ? ? Dictated by: Stephen Machado M.D. on 03/07/2022 at 0:33 ? ? Approved by: Stephen Machado M.D. on 03/07/2022 at 0:35?? CT scan - abdomen/pelvis: Radiologist's Impression: Launch?Image [address] [address] [address] Scan Report Signed Patient: Mariela North MR#: [id number] : 1940 Acct:[id number] Age/Sex: 81 / F Date of Service: 03/06/22 Loc: 90A-1 Accession Number: [id number] ?? Procedure: CT abdomen pelvis w con Ordering Provider: Gilberto Jean Baptiste MD PROCEDURE:? CT ABDOMEN PELVIS W CON ? INDICATIONS:? abdominal bleeding? ? TECHNIQUE:? After the administration of oral and IV contrast, axial sections were acquired from the lung bases to the pubic symphysis.? Coronal and sagittal reformats were pe rformed.? For radiation dose reduction, the following was used:? automated exposure control, adjustment of mA and/or kV according to patient size. ? COMPARISON:? None. ? FINDINGS:? Image quality:? Excellent.? ? Lung bases:? There are small bilateral pleural effusions.? Mild associated compressive atelectasis demonstrated in the right lung base.? ? Heart:? Heart size is enlarged. ? ? ABDOMEN: Liver:? There is periportal edema in the liver.? Heterogeneous enhancement also demonstrated within the hepatic parenchyma.? Multiple scattered small hypodense foci are demonstrated within the right hepatic lobe measuring up to approximately 0.5 cm.? There is reflux of contrast into the inferior vena cava and hepatic veins consistent with elevated right heart filling pressures.? Gallbladder:? The gallbladder is nondistended with gallbladder wall thickening which is nonspecific.? No calcified gallstones.? Biliary ducts:? No biliary ductal dilatation.? ? Pancreas:? Unremarkable.? ? Spleen:? Normal in size.? ? Adrenal Glands:? There is thickening of the adrenal glands bilaterally. Kidneys and Ureters:? No hydronephrosis.? Nonspecific perinephric stranding bilaterally.? ? ? Stomach and Bowel:? The stomach and small bowel appear normal in caliber and wall thickness.? There is segmental wall thickening involving the ascending colon as well as the sigmoid colon. Peritoneum:? There is a small amount of hyperdense free fluid within the pelvis consistent with hemoperitoneum..? No free air.? ? Ventral Wall: ? No hernia.? Abdominal Nodes:? No retroperitoneal or mesenteric adenopathy by size criteria.? Vessels:? Aorta and inferior vena cava are normal in size.? There is extensive atherosclerotic vascular calcification throughout the aorta and its branch vessels.? There are moderate to severe stenoses at the origin of the celiac and superior mesenteric arteries.? The inferior mesenteric artery is not well seen.? There is occlusion of the right common, external, and internal iliac arteries.? A femoral-femoral bypass graft appears patent.? Reconstituted right common femoral artery demonstrates diminutive opacification.? There is also thrombosis within the visualized proximal right superficial femoral artery.? There are severe stenoses in the proximal renal arteries. ? PELVIS: Pelvic Organs:? Unremarkable.? ? Bladder:? There is a Abdi catheter within a partially distended urinary bladde r.? ? Pelvic Nodes: No enlarged lymph nodes.? Miscellaneous: No inguinal hernias are seen. ? ? ? Bones:? There is diffuse osteopenia.? There are old healed fractures of the left superior and inferior pubic rami.? Postsurgical changes are demonstrated status post posterior fixation and fusion at L5-S1 with intervertebral spacers at L4-5 and L5-S1.? There is mild anterolisthesis at L4-5 and L5-S1.? There are postsurgical changes within the proximal right femur status post ORIF of a previous right femoral fracture. ? IMPRESSION:? ? 1. Small amount of hemoperitoneum within the pelvis without a discrete focus of active arterial extravasation identified. ? 2. Segmental colonic wall thickening within the ascending and sigmoid colon.? The findings may represent an infectious or inflammatory colitis versus bowel ischemia given the stenosis within the mesenteric arteries. ? 3. Small bilateral pleural effusions with associated compressive atelectasis. ? 4. Periportal edema within the liver is nonspecific. ? 5. Bifemoral bypass graft appears patent.? There is stenoses within the right common femoral artery and apparent occlusion within the proximal right superficial femoral artery where visualized. ? 6. Nonspecific gallbladder wall thickening without calcified gallstones.? Recommend correlation clinically for possible cholecystitis.? ? ? Dictated by: Stephen Machado M.D. on 03/07/2022 at 0:56 ? ? Approved by: Stephen Machado M.D. on 03/07/2022 at 1:17? ECG Data Attestation: I personally reviewed and interpreted this ECG as follows: Prior ECG tracings: available for review Interpretation: AFib with rapid ventricular response rate of 106 QRS of 108, QTC 536. ST dep ression in lateral leads with no elevation noted. Patient has prior EKGs has ST depression in V5 6 but not noted in V4 on priors. No no elevation. MDM Narrative Medical decision making narrative: This is an ill-appearing 81-year-old female who is anemic possible GI bleed but CT imaging shows hemoperitoneum, unclear of etiology is traumatic as patient had reported ground level fall although no obvious ecchymosis or traumatic changes to the skin, bleeding related to supratherapeutic INR, there is no active bleeding or extravasation on imaging. There was also discussion about possible ischemic colitis initial lactate was 9 although it has been trending down to 5.8, 3.9 and then 3.7. She was covered with Zosyn. Patient was hypotensive quite labile pressures over time and patient received 4 units of PRBCs, 3 units of FFP as her INR is 7.5 unclear if she has been taking Coumadin she is reportedly on Eliquis according her, her and not taking Coumadin. Patient's LFTs do not explain her INR elevation, fibrinogen is appropriate range. Patient also has acute renal failure she initially had 700 cc of urine out with Abdi catheter but then put out less than 50 over an hour and a half. She has had some improvement over time but continues to have minimal urine output. She was hyperkalemic with her acute renal failure but this has in continued to improve. No ST elevation on EKG but patient does have some new depression and rising troponin which is positive. Because of her elevated INR, symptomatic anemia she was not given aspirin or put on any thinners. Patient has had an increase in O2 requirements up to 4 L nasal cannula which is not unexpected based on her cardiac history, prior CHF and the amount of volume she has received. Trending over time patient's liver enzymes continue to trend up wards. Discussed patient she is a full code at this time, we did have a long discussion about goals of care and at this time she is full code. Patient is agreeable to transfer. Her mentation has improved after transfusion. <Raisa Leblanc MD - Last Filed: 03/06/22 22:02> Lab Data Labs: Lab Results 03/06/22 03/06/22 03/06/22 Range/Units 20:29 20:29 20:29 WBC 9.1 (4.5-11.0) X10^3/uL RBC 1.46 L (4.0-5.2) X10^6/uL Hgb 4.2 L* (12.0-16.0) g/dL Hct 14.4 L* (36-46) % MCV 98.8 (80-100) fL MCH 28.5 (26-34) PG MCHC 28.9 L (30-36) % RDW 19.5 H (11.6-14.8) % Plt Count 216 (150-400) X10^3/uL Neut % (Auto) 89.1 H (50-75) % Lymph % (Auto) 4.3 L (25-40) % Brooks % (Auto) 6.3 (3-14) % Eos % (Auto) 0.0 L (2-4) % Baso % (Auto) 0.3 (0-2) % Neut # (Auto) 8100 H (3114-7275) /uL Lymph # (Auto) 400 L (1867-6076) /uL Brooks # (Auto) 600 (0-900) /uL Eos # (Auto) 0 (0-450) /uL Baso # (Auto) 0 (0-100) /uL RBC Morphology See below Hypochromasia 2+ H Anisocytosis 2+ H Ovalocytes 2+ H Schistocytes 1+ H Percent Retic (1.1-2.6) % PT 88.4 H (10.1-12.7) SECONDS INR 7.5 H* (0.9-1.3) APTT 37 H D (26.4-36.2) SECONDS Fibrinogen (211-428) mg/dL Sodium 140 (137-145) mmol/L Potassium 6.1 H (3.4-5.1) mmol/L Chloride 113 H (98-107) mmol/L Carbon Dioxide 8 L* (22-32) mmol/L BUN 70 H (7-17) mg/dL Creatinine 2.06 H (0.52-1.04) mg/dL Estimated GFR 24 L (>60) mL/min BUN/Creatinine Ratio 34.0 H (6-22) Glucose 80 (80-110) mg/dL Lactate (0.7-2.1) mmol/L Calcium 7.4 L (8.4-10.2) mg/dL Iron (37-170) ug/dL TIBC (265-497) ug/dL % Saturation (15-50) % Transferrin (206-381) mg/dL Total Bilirubin 0.8 (0.2-1.3) mg/dL AST 148 H (14-36) IU/L ALT 102 H (<35) IU/L Alkaline Phosphatase 95 (38-126) U/L Lactate Dehydrogenase (313-618) U/L Troponin I 0.141 H* (0.01-0.034) ng/mL NT-Pro-B Natriuret Pep (<450) pg/mL Total Protein 5.9 L (6.3-8.2) g/dL Albumin 3.3 L (3.5-5.0) g/dL Globulin 2.6 (1.7-4.1) g/dL Albumin/Globulin Ratio 1.3 (1.0-2.8) Lipase 286 (23-300) U/L SARS-CoV-2 (PCR) (Negative) Blood Type Antibody Screen Crossmatch 03/06/22 03/06/22 03/06/22 Range/Units 20:29 20:29 20:29 WBC (4.5-11.0) X10^3/uL RBC (4.0-5.2) X10^6/uL Hgb (12.0-16.0) g/dL Hct (36-46) % MCV (80-100) fL MCH (26-34) PG MCHC (30-36) % RDW (11.6-14.8) % Plt Count (150-400) X10^3/uL Neut % (Auto) (50-75) % Lymph % (Auto) (25-40) % Brooks % (Auto) (3-14) % Eos % (Auto) (2-4) % Baso % (Auto) (0-2) % Neut # (Auto) (3278-7573) /uL Lymph # (Auto) (4788-9141) /uL Brooks # (Auto) (0-900) /uL Eos # (Auto) (0-450) /uL Baso # (Auto) (0-100) /uL RBC Morphology Hypochromasia Anisocytosis Ovalocytes Schistocytes Percent Retic (1.1-2.6) % PT (10.1-12.7) SECONDS INR (0.9-1.3) APTT (26.4-36.2) SECONDS Fibrinogen (211-428) mg/dL Sodium (137-145) mmol/L Potassium (3.4-5.1) mmol/L Chloride (98-107) mmol/L Carbon Dioxide (22-32) mmol/L BUN (7-17) mg/dL Creatinine (0.52-1.04) mg/dL Estimated GFR (>60) mL/min BUN/Creatinine Ratio (6-22) Glucose (80-110) mg/dL Lactate (0.7-2.1) mmol/L Calcium (8.4-10.2) mg/dL Iron (37-170) ug/dL TIBC (265-497) ug/dL % Saturation (15-50) % Transferrin (206-381) mg/dL Total Bilirubin (0.2-1.3) mg/dL AST (14-36) IU/L ALT (<35) IU/L Alkaline Phosphatase (38-126) U/L Lactate Dehydrogenase (313-618) U/L Troponin I (0.01-0.034) ng/mL NT-Pro-B Natriuret Pep 4850 H (<450) pg/mL Total Protein (6.3-8.2) g/dL Albumin (3.5-5.0) g/dL Globulin (1.7-4.1) g/dL Albumin/Globulin Ratio (1.0-2.8) Lipase (23-300) U/L SARS-CoV-2 (PCR) Negative (Negative) Blood Type A Positive Antibody Screen Negative Crossmatch See Detail 03/06/22 03/06/22 03/06/22 Range/Units 20:29 20:29 20:29 WBC (4.5-11.0) X10^3/uL RBC (4.0-5.2) X10^6/uL Hgb (12.0-16.0) g/dL Hct (36-46) % MCV (80-100) fL MCH (26-34) PG MCHC (30-36) % RDW (11.6-14.8) % Plt Count (150-400) X10^3/uL Neut % (Auto) (50-75) % Lymph % (Auto) (25-40) % Brooks % (Auto) (3-14) % Eos % (Auto) (2-4) % Baso % (Auto) (0-2) % Neut # (Auto) (1403-1639) /uL Lymph # (Auto) (8279-2515) /uL Brooks # (Auto) (0-900) /uL Eos # (Auto) (0-450) /uL Baso # (Auto) (0-100) /uL RBC Morphology Hypochromasia Anisocytosis Ovalocytes Schistocytes Percent Retic 2.4 (1.1-2.6) % PT (10.1-12.7) SECONDS INR (0.9-1.3) APTT (26.4-36.2) SECONDS Fibrinogen (211-428) mg/dL Sodium (137-145) mmol/L Potassium (3.4-5.1) mmol/L Chloride (98-107) mmol/L Carbon Dioxide (22-32) mmol/L BUN (7-17) mg/dL Creatinine (0.52-1.04) mg/dL Estimated GFR (>60) mL/min BUN/Creatinine Ratio (6-22) Glucose (80-110) mg/dL Lactate 9.1 H* (0.7-2.1) mmol/L Calcium (8.4-10.2) mg/dL Iron (37-170) ug/dL TIBC (265-497) ug/dL % Saturation (15-50) % Transferrin (206-381) mg/dL Total Bilirubin (0.2-1.3) mg/dL AST (14-36) IU/L ALT (<35) IU/L Alkaline Phosphatase (38-126) U/L Lactate Dehydrogenase 1328 H (313-618) U/L Troponin I (0.01-0.034) ng/mL NT-Pro-B Natriuret Pep (<450) pg/mL Total Protein (6.3-8.2) g/dL Albumin (3.5-5.0) g/dL Globulin (1.7-4.1) g/dL Albumin/Globulin Ratio (1.0-2.8) Lipase (23-300) U/L SARS-CoV-2 (PCR) (Negative) Blood Type Antibody Screen Crossmatch 03/06/22 03/06/22 Range/Units 20:29 20:29 WBC (4.5-11.0) X10^3/uL RBC (4.0-5.2) X10^6/uL Hgb (12.0-16.0) g/dL Hct (36-46) % MCV (80-100) fL MCH (26-34) PG MCHC (30-36) % RDW (11.6-14.8) % Plt Count (150-400) X10^3/uL Neut % (Auto) (50-75) % Lymph % (Auto) (25-40) % Brooks % (Auto) (3-14) % Eos % (Auto) (2-4) % Baso % (Auto) (0-2) % Neut # (Auto) (3400-5758) /uL Lymph # (Auto) (7692-1629) /uL Brooks # (Auto) (0-900) /uL Eos # (Auto) (0-450) /uL Baso # (Auto) (0-100) /uL RBC Morphology Hypochromasia Anisocytosis Ovalocytes Schistocytes Percent Retic (1.1-2.6) % PT (10.1-12.7) SECONDS INR (0.9-1.3) APTT (26.4-36.2) SECONDS Fibrinogen 286 (211-428) mg/dL Sodium (137-145) mmol/L Potassium (3.4-5.1) mmol/L Chloride (98-107) mmol/L Carbon Dioxide (22-32) mmol/L BUN (7-17) mg/dL Creatinine (0.52-1.04) mg/dL Estimated GFR (>60) mL/min BUN/Creatinine Ratio (6-22) Glucose (80-110) mg/dL Lactate (0.7-2.1) mmol/L Calcium (8.4-10.2) mg/dL Iron 27 L (37-170) ug/dL TIBC 322 (265-497) ug/dL % Saturation 8 L (15-50) % Transferrin 222 (206-381) mg/dL Total Bilirubin (0.2-1.3) mg/dL AST (14-36) IU/L ALT (<35) IU/L Alkaline Phosphatase (38-126) U/L Lactate Dehydrogenase (313-618) U/L Troponin I (0.01-0.034) ng/mL NT-Pro-B Natriuret Pep (<450) pg/mL Total Protein (6.3-8.2) g/dL Albumin (3.5-5.0) g/dL Globulin (1.7-4.1) g/dL Albumin/Globulin Ratio (1.0-2.8) Lipase (23-300) U/L SARS-CoV-2 (PCR) (Negative) Blood Type Antibody Screen Crossmatch Point of Care Testing Stool Occult Blood Positive Critical Care Time <Bina Kumar, - Last Filed: 03/07/22 06:39> Critical Care Time Critical Care Time: Yes Total Critical Care Time: 120 Attestation: The high probability of a clinically significant, sudden or life threatening deterioration of the [cardiac, pulm, renal] system(s) required my full and direct attention, intervention and personal management. The aggregate critical care time was [120] minutes. This time is in addition to time spent performing reported procedures but includes the following: [x] Data Review and interpretation [x] Patient assessment and monitoring of vital signs [x] Documentation [x] Medication orders and management Discharge Plan Departure Patient Disposition: Admitted As Inpatient Clinical Impression: Syncope, Acute GI bleeding, Symptomatic anemia, Acute renal failure, Acute hyperkalemia, Non-ST elevation MT (NSTEMI), Acidosis, lactic, Hemoperitoneum Admit Date/Time: 03/06/22 22:41 Admit Provider: Gilberto Jean Baptiste
--- NOTE | 2022-03-06 20:37 | DI.RAD.S_ITS ---
PROCEDURE: XR CHEST 1V INDICATIONS: syncope TECHNIQUE: One view of the chest was acquired. COMPARISON: [facility], CR, XR CHEST 1V, 05/05/2020, 15:22. FINDINGS: Surgical changes and devices: None. Lungs and pleura: There is hyperinflation of the lungs with flattening of the hemidiaphragms compatible with COPD. No definite acute consolidation. No pleural effusions or pneumothorax. Mediastinum: Mediastinal contours appear prominent due to rotation and portable supine technique. Heart size is enlarged. Bones and chest wall: No suspicious bony lesions. Overlying soft tissues appear unremarkable. IMPRESSION: 1. No definite acute cardiopulmonary disease. 2. Cardiomegaly. Dictated by: Stephen Machado M.D. on 03/07/2022 at 0:33 Approved by: Stephen Machado M.D. on 03/07/2022 at 0:35
--- NOTE | 2022-03-06 20:37 | DI.CT.S_ITS ---
PROCEDURE: CT HEAD/BRAIN WO CON INDICATIONS: syncope TECHNIQUE: Noncontrast 4.5 mm thick angled axial sections acquired from the foramen magnum to the vertex, with coronal and sagittal reformats. For radiation dose reduction, the following was used: automated exposure control, adjustment of mA and/or kV according to patient size. COMPARISON: [facility], CT, HEAD WITHOUT CONTRAST, 04/12/2016, 6:59. FINDINGS: Image quality: There is motion artifact slightly limiting evaluation. CSF spaces: Basal cisterns are patent. No extra-axial fluid collections. There is moderate to severe cerebral volume loss, with resultant ventricular and sulcal prominence. Findings are similar to the prior study. Brain: No intracranial hemorrhage, mass, or mass effect. There are subcortical, periventricular and deep white matter hypodensities consistent with moderate chronic small vessel ischemic changes. The greenwood-white matter junction appears preserved. There is intracranial internal carotid artery atherosclerosis. Skull and face: Calvarium and visualized facial bones appear intact, without suspicious lesions. There is osteopenia. Sinuses: Visualized sinuses and mastoids are clear. IMPRESSION: 1. No acute intracranial abnormality. 2. Moderate to severe cerebral volume loss and moderate chronic white matter small vessel ischemic changes. Dictated by: Stephen Machado M.D. on 03/06/2022 at 21:38 Approved by: Stephen Machado M.D. on 03/06/2022 at 21:41
[2022-03-06 20:48] LABS: Basophils Absolute Auto 0 /uL (0-100); Basophils Percent Auto 0.3 % (0-2); Eosinophils Absolute Auto 0 /uL (0-450); Lymphocytes Absolute Auto 400 /uL (1100-4500); Lymphocytes Percent Auto 4.3 % (25-40); Mean Corpuscular HGB Conc 28.9 % (30-36); Mean Corpuscular Hemoglobin 28.5 PG (26-34); Mean Corpuscular Volume 98.8 fL (80-100); Monocytes Absolute Auto 600 /uL (0-900); Monocytes Percent Auto 6.3 % (3-14); Neutrophils Absolute Auto 8100 /uL (1500-7000); Neutrophils Percent Auto 89.1 % (50-75); Platelet Count 216 X10^3/uL (150-400); Red Blood Cell Count 1.46 X10^6/uL (4.0-5.2); Red Cell Distribution Width 19.5 % (11.6-14.8); White Blood Cell Count 9.1 X10^3/uL (4.5-11.0)
[2022-03-06 20:50] LABS: Hematocrit 14.4 % (36-46); Hemoglobin 4.2 g/dL (12.0-16.0)
[2022-03-06 20:51] LABS: Add Manual Diff / Slide Review SLIDE REVIEW; PTT Partial Thromboplastin Tim 37 SECONDS (26.4-36.2)
[2022-03-06 20:57] LABS: Albumin 3.3 g/dL (3.5-5.0); Albumin Globulin Ratio 1.3 (1.0-2.8); Alkaline Phosphatase 95 U/L (38-126); Aspartate Aminotransferase 148 IU/L (14-36); Bilirubin Total 0.8 mg/dL (0.2-1.3); Blood Urea Nitrogen 70 mg/dL (7-17); Calcium 7.4 mg/dL (8.4-10.2); Chloride 113 mmol/L (98-107); Estimated Glomerular Filt Rate 24 mL/min (>60); Globulin 2.6 g/dL (1.7-4.1); Glucose 80 mg/dL (80-110); HEMOLYSIS < 15 (0-50); Lipase 286 U/L (23-300); Prothrombin Time 88.4 SECONDS (10.1-12.7); Sodium 140 mmol/L (137-145); Total Protein 5.9 g/dL (6.3-8.2)
[2022-03-06 20:58] LABS: INR 7.5 (0.9-1.3)
[2022-03-06 21:04] LABS: Alanine Aminotransferase 102 IU/L (<35)
[2022-03-06 21:07] LABS: NT-proBNP (BNP-Adult 18+) 4850 pg/mL (<450)
[2022-03-06] MEDS: PANTOPRAZOLE 40 MG VIAL 80 MG IV (21:22)
[2022-03-06] MEDS: PHYTONADIONE (VIT K1) 10 MG in SODIUM CHLORIDE 0.9% 100 ML 202 MG IV (21:22)
[2022-03-06 21:23] LABS: Potassium 6.1 mmol/L (3.4-5.1)
[2022-03-06 21:29] LABS: Carbon Dioxide 8 mmol/L (22-32); Troponin I 0.141 ng/mL (0.01-0.034)
[2022-03-06 21:33] LABS: COVID19 -Nasal RAPID Negative (Negative)
[2022-03-06 22:20] LABS: Anisocytosis 2+; Hypochromasia 2+
[2022-03-06 22:21] LABS: Ovalocytes 2+; Schistocytes 1+
[2022-03-06 22:50] LABS: HEMOLYSIS < 15 (0-50); Iron 27 ug/dL (37-170); Lactate Dehydrogenase 1328 U/L (313-618)
[2022-03-06 22:52] LABS: Lactate (Lactic Acid) 9.1 mmol/L (0.7-2.1)
--- NOTE | 2022-03-06 22:57 | DI.CT.S_ITS ---
PROCEDURE: CT ABDOMEN PELVIS W CON INDICATIONS: abdominal bleeding? TECHNIQUE: After the administration of oral and IV contrast, axial sections were acquired from the lung bases to the pubic symphysis. Coronal and sagittal reformats were performed. For radiation dose reduction, the following was used: automated exposure control, adjustment of mA and/or kV according to patient size. COMPARISON: None. FINDINGS: Image quality: Excellent. Lung bases: There are small bilateral pleural effusions. Mild associated compressive atelectasis demonstrated in the right lung base. Heart: Heart size is enlarged. ABDOMEN: Liver: There is periportal edema in the liver. Heterogeneous enhancement also demonstrated within the hepatic parenchyma. Multiple scattered small hypodense foci are demonstrated within the right hepatic lobe measuring up to approximately 0.5 cm. There is reflux of contrast into the inferior vena cava and hepatic veins consistent with elevated right heart filling pressures. Gallbladder: The gallbladder is nondistended with gallbladder wall thickening which is nonspecific. No calcified gallstones. Biliary ducts: No biliary ductal dilatation. Pancreas: Unremarkable. Spleen: Normal in size. Adrenal Glands: There is thickening of the adrenal glands bilaterally. Kidneys and Ureters: No hydronephrosis. Nonspecific perinephric stranding bilaterally. Stomach and Bowel: The stomach and small bowel appear normal in caliber and wall thickness. There is segmental wall thickening involving the ascending colon as well as the sigmoid colon. Peritoneum: There is a small amount of hyperdense free fluid within the pelvis consistent with hemoperitoneum.. No free air. Ventral Wall: No hernia. Abdominal Nodes: No retroperitoneal or mesenteric adenopathy by size criteria. Vessels: Aorta and inferior vena cava are normal in size. There is extensive atherosclerotic vascular calcification throughout the aorta and its branch vessels. There are moderate to severe stenoses at the origin of the celiac and superior mesenteric arteries. The inferior mesenteric artery is not well seen. There is occlusion of the right common, external, and internal iliac arteries. A femoral-femoral bypass graft appears patent. Reconstituted right common femoral artery demonstrates diminutive opacification. There is also thrombosis within the visualized proximal right superficial femoral artery. There are severe stenoses in the proximal renal arteries. PELVIS: Pelvic Organs: Unremarkable. Bladder: There is a Abdi catheter within a partially distended urinary bladder. Pelvic Nodes: No enlarged lymph nodes. Miscellaneous: No inguinal hernias are seen. Bones: There is diffuse osteopenia. There are old healed fractures of the left superior and inferior pubic rami. Postsurgical changes are demonstrated status post posterior fixation and fusion at L5-S1 with intervertebral spacers at L4-5 and L5-S1. There is mild anterolisthesis at L4-5 and L5-S1. There are postsurgical changes within the proximal right femur status post ORIF of a previous right femoral fracture. IMPRESSION: 1. Small amount of hemoperitoneum within the pelvis without a discrete focus of active arterial extravasation identified. 2. Segmental colonic wall thickening within the ascending and sigmoid colon. The findings may represent an infectious or inflammatory colitis versus bowel ischemia given the stenosis within the mesenteric arteries. 3. Small bilateral pleural effusions with associated compressive atelectasis. 4. Periportal edema within the liver is nonspecific. 5. Bifemoral bypass graft appears patent. There is stenoses within the right common femoral artery and apparent occlusion within the proximal right superficial femoral artery where visualized. 6. Nonspecific gallbladder wall thickening without calcified gallstones. Recommend correlation clinically for possible cholecystitis. Dictated by: Stephen Machado M.D. on 03/07/2022 at 0:56 Approved by: Stephen Machado M.D. on 03/07/2022 at 1:17
[2022-03-06 23:01] LABS: Percent Iron Saturation 8 % (15-50); Total Iron Binding Capacity 322 ug/dL (265-497); Transferrin 222 mg/dL (206-381)
[2022-03-06] MEDS: PROTHROMBIN CPLX(PCC)4FACT 2,500 UNIT in ISOOSMOTIC VEHICLE 0 ML 352.714 UNIT IV (23:04)
[2022-03-06] MEDS: CALCIUM GLUCONATE 4.65 MEQ in SODIUM CHLORIDE 0.9% 50 ML 180 MEQ IV (23:05)
[2022-03-06 23:27] LABS: Fibrinogen 286 mg/dL (211-428)
[2022-03-06 23:38] LABS: Reticulocyte Count, Percent 2.4 % (1.1-2.6)
[2022-03-07] VITALS (96 sets, daily range): BP systolic 77–171; BP diastolic 44–77; PULSE 92–131; RESP 18–50; TEMP 35.8–36.5; O2SAT 90–97
[2022-03-07 00:28] LABS: Add Manual Diff / Slide Review NO; Basophils Absolute Auto 0 /uL (0-100); Basophils Percent Auto 0.3 % (0-2); Eosinophils Absolute Auto 0 /uL (0-450); Hemoglobin 7.9 g/dL (12.0-16.0); Lymphocytes Absolute Auto 300 /uL (1100-4500); Lymphocytes Percent Auto 2.9 % (25-40); Mean Corpuscular HGB Conc 32.3 % (30-36); Mean Corpuscular Hemoglobin 30.1 PG (26-34); Mean Corpuscular Volume 93.4 fL (80-100); Monocytes Absolute Auto 600 /uL (0-900); Monocytes Percent Auto 5.9 % (3-14); Neutrophils Absolute Auto 9800 /uL (1500-7000); Neutrophils Percent Auto 90.9 % (50-75); Platelet Count 162 X10^3/uL (150-400); Red Blood Cell Count 2.62 X10^6/uL (4.0-5.2); Red Cell Distribution Width 16.1 % (11.6-14.8); White Blood Cell Count 10.8 X10^3/uL (4.5-11.0)
[2022-03-07 00:30] LABS: Hematocrit 24.5 % (36-46)
[2022-03-07 00:37] LABS: Reflexed Lactate in 2 Hours Y
[2022-03-07 00:37] LABS: INR 3.5 (0.9-1.3); Prothrombin Time 39.8 SECONDS (10.1-12.7)
[2022-03-07 00:40] LABS: PTT Partial Thromboplastin Tim 37 SECONDS (26.4-36.2)
[2022-03-07 00:53] LABS: Lactate (Lactic Acid) 5.8 mmol/L (0.7-2.1)
[2022-03-07 01:10] LABS: Albumin 3.4 g/dL (3.5-5.0); Albumin Globulin Ratio 1.3 (1.0-2.8); Alkaline Phosphatase 96 U/L (38-126); Aspartate Aminotransferase 315 IU/L (14-36); Bilirubin Total 1.3 mg/dL (0.2-1.3); Blood Urea Nitrogen 67 mg/dL (7-17); Calcium 7.5 mg/dL (8.4-10.2); Chloride 112 mmol/L (98-107); Estimated Glomerular Filt Rate 25 mL/min (>60); Globulin 2.7 g/dL (1.7-4.1); Glucose 106 mg/dL (80-110); HEMOLYSIS < 15 (0-50); Potassium 5.2 mmol/L (3.4-5.1); Sodium 141 mmol/L (137-145); Total Protein 6.1 g/dL (6.3-8.2)
[2022-03-07 01:12] LABS: Carbon Dioxide 9 mmol/L (22-32)
[2022-03-07 01:15] LABS: Creatine Kinase 2377 U/L (30-135)
[2022-03-07 01:16] LABS: Alanine Aminotransferase 237 IU/L (<35)
[2022-03-07 01:39] LABS: CKMB % Relative Index 1.6 % (1.5-5.0)
[2022-03-07 02:22] LABS: Reflexed Lactate in 2 Hours Y
--- NOTE | 2022-03-07 02:30 | PC.NURSE ---
bedpan removed and pt cleaned of stool, area around rectum noted red about the size of a grapefruit with some skin breakdown, barrier cream applied
[2022-03-07 02:49] LABS: HCO3 VBG 12 mmol/L (23-28); Oxygen Saturation VBG 49 % (70-75); PCO2 VBG 25.3 mmHg (45-50); PO2 VBG 29 mmHg (35-45); Total CO2 VBG 13 mmol/L (24-29)
[2022-03-07 02:50] LABS: pH VBG 7.29 (7.33-7.43)
[2022-03-07 02:59] LABS: Lactate 2HR (Lactic Acid Rflx) 3.9 mmol/L (0.7-2.1)
[2022-03-07] MEDS: PIPERACILLIN/TAZO 4.5 GM in SODIUM CHLORIDE 0.9% 100 ML IV (03:19)
[2022-03-07 04:06] LABS: Add Manual Diff / Slide Review NO; Basophils Absolute Auto 0 /uL (0-100); Basophils Percent Auto 0.1 % (0-2); Eosinophils Absolute Auto 0 /uL (0-450); Hematocrit 29.2 % (36-46); Hemoglobin 9.5 g/dL (12.0-16.0); Lymphocytes Absolute Auto 400 /uL (1100-4500); Lymphocytes Percent Auto 3.5 % (25-40); Mean Corpuscular HGB Conc 32.5 % (30-36); Mean Corpuscular Hemoglobin 29.9 PG (26-34); Monocytes Absolute Auto 800 /uL (0-900); Monocytes Percent Auto 7.3 % (3-14); Neutrophils Absolute Auto 9900 /uL (1500-7000); Neutrophils Percent Auto 89.1 % (50-75); Platelet Count 156 X10^3/uL (150-400); Red Blood Cell Count 3.18 X10^6/uL (4.0-5.2); Red Cell Distribution Width 15.7 % (11.6-14.8); White Blood Cell Count 11.1 X10^3/uL (4.5-11.0)
[2022-03-07 04:08] LABS: INR 3.9 (0.9-1.3); Prothrombin Time 44.5 SECONDS (10.1-12.7)
[2022-03-07 04:12] LABS: Lactate (Lactic Acid) 3.7 mmol/L (0.7-2.1)
[2022-03-07 04:14] LABS: Alanine Aminotransferase 376 IU/L (<35); Albumin 3.3 g/dL (3.5-5.0); Albumin Globulin Ratio 1.2 (1.0-2.8); Alkaline Phosphatase 105 U/L (38-126); Aspartate Aminotransferase 536 IU/L (14-36); BUN Creatinine Ratio 34.7 (6-22); Bilirubin Total 1.8 mg/dL (0.2-1.3); Blood Urea Nitrogen 69 mg/dL (7-17); Calcium 7.3 mg/dL (8.4-10.2); Carbon Dioxide 11 mmol/L (22-32); Chloride 111 mmol/L (98-107); Estimated Glomerular Filt Rate 25 mL/min (>60); Globulin 2.8 g/dL (1.7-4.1); Glucose 123 mg/dL (80-110); HEMOLYSIS < 15 (0-50); Sodium 141 mmol/L (137-145); Total Protein 6.1 g/dL (6.3-8.2)
[2022-03-07 04:26] LABS: Troponin I 0.251 ng/mL (0.01-0.034)
--- NOTE | 2022-03-07 04:28 | PC.NURSE ---
Trop 0.251
--- NOTE | 2022-03-07 05:48 | PC.NURSE ---
pt resting waiting transport to [facility]
[2022-03-07] MEDS: SODIUM CHLORIDE 0.9% 1,000 ML 100 ML IV (05:52)
[2022-03-07 06:01] LABS: Reflexed Lactate in 2 Hours Y
--- NOTE | 2022-03-07 06:25 | PC.NURSE ---
pt left the ED for transfer with the IV infusing
== END 2022-03-07 09:04 | disposition short-term general hospital (02) ==
PROVIDERS: Internal Medicine; Emergency Provider Emergency Medicine; Family Provider Physician Assistant; PCP Student in an Organized Health Care Education/Training Program; Referring Provider Emergency Medicine
DX: R55 Syncope and collapse (principal); K92.2 Gastrointestinal hemorrhage, unspecified; D64.9 Anemia, unspecified; N17.9 Acute kidney failure, unspecified; E87.5 Hyperkalemia; I21.4 Non-ST elevation (NSTEMI) myocardial infarction; E87.2 Acidosis; K66.1 Hemoperitoneum; W18.30XA Fall on same level, unspecified, initial encounter; Z79.01 Long term (current) use of anticoagulants; Z20.822 Contact with and (suspected) exposure to COVID-19
CPT/HCPCS: 36430; 70450; 71045; 74177; 80053; 82272; 82550; 82553; 82805; 83540; 83550; 83605; 83615; 83690; 83880; 84484; 85025; 85045; 85384; 85610; 85730; 86850; 86900; 86901; 86927; 87635; 93005; 96365; 96367; 96375; 99285; 99291; 99292; C9803; P9016; C9113; J0610; J2405; J2543; J3430; J7168; Q9967